=== PATIENT | female | born 1965 | race African-American/Black ===

== ENCOUNTER 2019-09-15 13:39 | Outpatient (CLI) | payer OTHER, SELFPAY ==
[2019-09-15 14:09] LABS: Basophils Percent Auto 0.5 % (0.2-1.2); Eosinophils Absolute Auto 0.1 K/mm3 (0-0.3); Eosinophils Percent Auto 1.1 % (0-4.4); Hemoglobin 12.2 g/dL (12.0-15.0); Immature Granulocyte Absolute 0.01 K/mm3 (0.00-0.031); Immature Granulocyte Percent A 0.2 % (0-0.5); Lymphocytes Percent Auto 36.5 % (18.3-44.2); Mean Corpuscular HGB Conc 32.1 g/dl (32-36); Mean Corpuscular Hemoglobin 28.2 pg (26-34); Mean Platelet Volume 11.5 fl (7.4-10.4); Monocytes Absolute Auto 0.6 K/mm3 (0.1-0.6); Monocytes Percent Auto 12.6 % (2.6-8.5); Neutrophils Absolute Auto 2.2 K/mm3 (1.3-6.7); Neutrophils Percent Auto 49.1 % (45.5-73.1); Platelet Count Result 237 k/mm3 (150-375); Red Blood Count 4.32 M/mm3 (4.2-5.4); Red Cell Distribution Width 13.7 % (11.5-14.5); White Blood Count 4.4 K/mm3 (4.5-10.0)
[2019-09-15 14:19] LABS: Alanine Aminotransferase 16 U/L (4-35); Albumin Level 4.2 g/dL (3.5-5.1); Alkaline Phosphatase 93 U/L (38-126); Aspartate Amino Transferase 35 U/L (14-36); Bilirubin,Total 0.4 mg/dL (0.2-1.3); Blood Urea Nitrogen 15 mg/dL (7-17); Calcium 9.3 mg/dL (8.4-10.2); Carbon Dioxide 29 mmol/L (22-30); Chloride 103 mmol/L (98-107); Estimated Glomerular Filt Rate > 60; Glucose 98 mg/dL (65-105); Potassium 3.3 mmol/L (3.4-5.0); Sodium 143 mmol/L (137-145)
[2019-09-15 14:21] LABS: Rheumatoid Factor < 8.6 IU/ML (<12)
[2019-09-15 14:41] LABS: Erythrocyte Sedimentation Rate 98 mm/hr (0-20)
[2019-09-19 11:52] LABS: Anti Cyclic Citrullinated Pept 21 Units (<20)
== END 2019-09-15 13:40 | disposition home or self-care (01) ==
PROVIDERS: PCP Family Medicine
DX: M32.9 Systemic lupus erythematosus, unspecified (principal)
CPT/HCPCS: 36415; 80053; 85025; 85652; 86200; 86430

== ENCOUNTER 2020-07-26 15:30 | Outpatient (RCR) | payer OTHER, SELFPAY ==
--- NOTE | 2020-07-17 13:36 | PTOPEVAL ---
INITIAL PHYSICAL THERAPY EVALUATION and PLAN OF CARE Thank you for referring Beatrice Bennett to [facility].? Beatrice is scheduled to be seen for physical therapy? 2x/week for 4 weeks. Please review, sign, date and return this plan of care MONICA. I agree with and certify that the following plan of care is medically necessary. Referring Physician Date Admitting Provider: Attending Provider: Radha Dunn Referring Provider: *PT Outpatient Evaluation Start: 07/17/20 12:41 Freq: Status: Active Protocol: Document 07/17/20 12:35 NEHEMIAH (Rec: 07/17/20 13:36 NEHEMIAH [id number]) Therapy Assessment Status Assessment Status Assessment Status Evaluation Outpatient Past Medical History Past Medical History Source of Past Medical History Patient Neurological History Hx Neurological Disorders No Significant History Cardiovascular History Hx Hypertension Yes Respiratory History Hx Respiratory Disorders No Significant History Gastrointestinal History Hx Gastroesophageal Reflux Disease Yes Genitourinary History Hx Genitourinary Disorders No Significant History Musculoskeletal History Hx Arthritis Yes: cervical spine 2018 Endocrine History Hx Systemic Lupus Erythematosus Yes Evaluation Information Problem Diagnosis Degenerative cervical spinal stenosis Onset ~ 2 years ago - recent return 3-4 months ago Subjective Information Pain/stiffness in neck - Query Text:As Reported By Patient/ traveled into [facility] Family and forward into clavicular region. Went to a spa - helped - heat, water bed with pulsating jets. Sleeping - stiffness in morning, sleeps on side - uses neck pillow. Walks in mornings - 1.5 miles - will loosen up after walk. As day go on - does okay unless she has episodes of prolonged sitting. Will do shoulder rolls, scapular retraction to help loosen neck up. 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 Home
--- NOTE | 2020-07-26 16:08 | PCPTNOTE ---
Patient did not show up for scheduled appointment this date; She answered the phone stating she's been in [facility] due to family member having heart issues and forgot about appointment. Unsure if she will be able to make Thursday's appointment will call to cancel iff need be.
--- NOTE | 2020-07-31 13:13 | PCPTNOTE ---
Patient did not show up for scheduled appointment this date. Phone call made - Beatrice appeared to know she missed today's appointment - something about her . Was aware of her 7:30 appt on 08/02/2020.
--- NOTE | 2020-08-02 09:40 | PCPTNOTE ---
Patient did not show up for scheduled appointment this date; noticed PT about patient third no show.
--- NOTE | 2020-08-06 16:12 | PCPTNOTE ---
PHYSICAL THERAPY DISCHARGE SUMMARY Admitting Provider: Attending Provider: Radha Dunn Patient:Beatrice Bennett Date of :1965 Beatrice has not returned for any further treatments since 07/17/2020, which was her initial appointment. She has cancelled 1 appointment and did not show x 3 appointments. I phone her today in regards to her appointment 08/07/2020. She stated that she is undergoing further testing and is wanting to cancel the remainder of her appointments. Therefore she will be discharged at this time. The goals have not been met. She only attended the initial appointment. Thank you for referring Beatrice to [facility]. Please review, sign, date and return this discharge summary MONICA. I have been updated about Beatrice's current status and I agree with discharge from the above service at this time. Referring Physician Date
== END 2020-10-01 12:16 | disposition home or self-care (01) ==
LOC: ANHPT 15:30
PROVIDERS: PCP Family Medicine
DX: M48.02 Spinal stenosis, cervical region (principal)
CPT/HCPCS: 97162

== ENCOUNTER 2020-08-06 16:31 | Emergency (ER) | payer OTHER, SELFPAY ==
[2020-08-06 16:41] VITALS: BP 137/86; PULSE 86; RESP 20; TEMP 37.3; O2SAT 100
== END 2020-08-06 16:46 | disposition left against medical advice (07) ==
LOC: EXPCOLL 16:36
PROVIDERS: Emergency Provider Nurse Practitioner
DX: Z53.21 Procedure and treatment not carried out due to patient leaving prior to being seen by health care provider (principal)
CPT/HCPCS: 99199

== ENCOUNTER 2021-01-30 08:00 | Outpatient (RCR) | payer OTHER, SELFPAY ==
--- NOTE | 2020-12-26 13:40 | PTOPEVAL ---
PHYSICAL THERAPY EVALUATION AND PLAN OF CARE 12-26-20 Thank you for referring Beatrice Bennett to [facility], for the diagnosis of cervical spinal stenosis. Beatrice is scheduled to be seen for therapy? 2 x/week for 4 weeks. Please review, sign, date and return this plan of care MONICA. I agree with and certify that the following plan of care is medically necessary. Referring Physician Date Attending Provider: Dr. Kavya Dunn PT Outpatient Evaluation Document 12/26/20 12:50 SHELIA (Rec: 12/26/20 13:40 SHELIA [id number]) Source of Past Medical History Recalled from Previous Visit, Confirmed with Patient/Family Neurological History Hx Neurological Disorders No Significant History Cardiovascular History Hx Hypertension Yes: meds Respiratory History Hx Respiratory Disorders No Significant History Gastrointestinal History Hx Gastroesophageal Reflux Disease Yes Genitourinary History Hx Genitourinary Disorders No Significant History Musculoskeletal History Hx Arthritis Yes: cervical - upper thoracic pain Endocrine History Hx Systemic Lupus Erythematosus Yes HEENT History Hx HEENT Disorders No Significant History Integumentary History Hx Skin Disorders No Significant History Other History Hx Other Medical Conditions Yes: had COVID vaccine Evaluation Information Problem Diagnosis cervical spinal stenosis, neck pain Onset November 2020 Subjective Information gradual increase in neck pain; Query Text:As Reported By Patient/ no recent trauma or injury; Family have been busier at work and doing more; 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
--- NOTE | 2020-12-31 09:38 | PCPTNOTE ---
Patient did not show for today's visit.Patient called and reminded of her next appointment.
--- NOTE | 2021-01-04 10:47 | PCPTNOTE ---
Pt. cancelled therapy this date due to lack of transportation.
--- NOTE | 2021-01-14 14:12 | PCPTNOTE ---
pt did not show for today's appt; called pt and she thought her appt was tomorrow; reminder her of her next appt time on 01-17-21; she stated she would be here for that appt;
--- NOTE | 2021-01-24 08:24 | PCPTNOTE ---
pt called and rescheduled today's reeval;
--- NOTE | 2021-01-30 08:45 | PTOPEVAL ---
PHYSICAL THERAPY DISCHARGE 01-30-21 Refer to the clinical summary below for her status today, compared to the initial evaluation. The goals were partially achieved. Discharge PT services. Thank you for referring Beatrice Bennett to [facility] Please review, sign, date and return this Discharge report MONICA. I agree with and certify that the following plan of care is medically necessary. Referring Physician Date Attending Provider: Dr. Kavya Dunn Document 01/30/21 08:05 SHELIA (Rec: 01/30/21 08:44 SHELIA [id number]) Assessment Status Discharge Subjective Information Beatrice reports: woke up with Query Text:As Reported By Patient/ a headache and not feeling Family well this AM, sore in back and neck; went to gym this AM- walked on treadmill and did some arm weights; dry needling helped; therapy has helped; Pain Assessment Timing of Pain Assessment Timing of Pain Assessment Assessment Pain Scale Pain Scale Used Numeric (1 - 10) Self Report Pain Assessment Bilateral Spine, Cervical Reported Pain Level 8 Radicular Pain Location hot pain, stiff, headache; woke up hurting all over back this morning Pain Frequency Chronic Other Pain Description neck and both shoulder blades Lowest Pain Intensity 1 Greatest Pain Intensity 8 Other Pain Aggravating Factors sleeping--usually sleep hrs/ night;(mattress is 6 months old) Pain Behaviors Anxious,Grimacing,Guarding Additional Pain Comments worse pain has been about 5, but this AM worse-woke up with headache Pain Score Pain Score 8: Self Report Additional Pain Score Comments Oswestry self assessment functional score of 28% limitation; reports working time 10 hours, before pain increases--notice worse at tne of the day: hours and with sleeping, awaken 0-2x/night due to pain; last night did not sleep with the neck pillow that usually use; sleep R/L side; have not been having any headaches, but do this AM--? ill or sinus issues discussed pain management techniques: heat, s
== END 2021-02-01 08:22 | disposition home or self-care (01) ==
LOC: ANHPT 08:00
DX: M48.02 Spinal stenosis, cervical region (principal)
CPT/HCPCS: 97014; 97110; 97140; 97161; G0283

== ENCOUNTER 2021-04-16 15:50 | Outpatient (CLI) | payer OTHER, SELFPAY ==
--- NOTE | ~2021-04-16 | MM_ITS ---
EXAMINATION: MM screening david BI w diego HISTORY: Screening mammogram TECHNIQUE: Craniocaudal and mediolateral oblique 3-D tomosynthesis images were obtained and synthetic 2-D images were generated. CAD analysis was submitted and interpreted. COMPARISON: 12/09/2018, 11/04/2017, 08/06/2016 bilateral digital screening mammogram examinations BREAST PARENCHYMAL COMPOSITION: There are scattered areas of fibroglandular density. FINDINGS: There is no evidence of suspicious mass, calcification, or architectural distortion to sugg est malignancy in either breast. There has been no suspicious interval change. IMPRESSION: 1. No mammographic evidence of malignancy. 2. Recommend routine screening mammography in one year. BI-RADS Category 1: Negative Reviewed, dictated and finalized at location A.
== END 2021-04-16 15:51 | disposition home or self-care (01) ==
LOC: ANHIMG 15:52
DX: Z12.31 Encounter for screening mammogram for malignant neoplasm of breast (principal)
CPT/HCPCS: 77063; 77067

== ENCOUNTER 2021-09-13 10:58 | Emergency (ER) | payer OTHER, SELFPAY ==
--- NOTE | ~2021-09-13 | CT_ITS ---
EXAMINATION: CTA chest PE protocol DATE: 09/13/2021 12:38 INDICATION: Midsternal chest pain. TECHNIQUE: Computed tomography angiography (CTA) of the chest was performed with 100 mL Omnipaque-350 intravenous contrast timed to evaluate the pulmonary arteries. Coronal maximum intensity projection 3D-reconstructions were created by the technologist. Automated exposure control and iterative reconst ruction technique were employed. The dose-length product was 256.44 mGy-cm. COMPARISON: Chest 2 views 09/13/2021 FINDINGS: There are peripheral airspace opacities and groundglass opacities and septal thickening inv olving all lobes, worst in the basilar lower lobes. There are peripheral cystic areas in the basilar lower lobes and right upper lobe, consistent with honeycombing. No bronchiectasis. No pleural effusio n. The heart size is normal. There are coronary artery calcifications. No pericardial effusion. There is a small sliding hiatal hernia. There is no pulmonary embolus. There is mild thoracic spondylosis. IMPRESSION: 1. No pulmonary embolus. 2. Diffuse lung disease, most likely chronic interstitial lung disease in a pattern of usual intersti tial pneumonia (UIP). Reviewed, dictated and finalized at location E. WALKER IMPRESSION: 1. No pulmonary embolus. 2. Diffuse lung disease, most likely chronic interstitial lung disease in a pat tern of usual interstitial pneumonia (UIP).
--- NOTE | ~2021-09-13 | XR_ITS ---
XR chest 2V DATE: 09/13/2021 11:25 INDICATION: Chest pain TECHNIQUE: PA and lateral views COMPARISON: 12/29/2013 PA and lateral chest FINDINGS: Normal heart size. Aortic arch calcification and mild aortic unfolding. No hilar or mediast inal enlargement. No pulmonary infiltrate or consolidation, pleural effusion or pulmonary vascular congestion or pneumo thorax. IMPRESSION: No active cardiopulmonary disease Aortic atherosclerosis Reviewed, dictated and finalized at location B. NCIAL SECRETARY
[2021-09-13 11:05] VITALS: BP 162/94; BP 168/87; PULSE 80; PULSE 84; RESP 18; RESP 20; TEMP 36.8; O2SAT 100
--- NOTE | 2021-09-13 11:10 | ECG_ITS ---
Measurements Intervals [place] Rate: 77 P: 58 NV: 177 QRS: 19 QRSD: 97 T: 29 QT: 370 QTc: 421 Interpretive Statements SINUS RHYTHM BASELINE ARTIFACT- I, II, III, AVR, AVL, AVF, V1-V6 NORMAL ECG Electronically Signed On 09-13-2021 12:10:52 [employer] ADVOCATE by Gabe Mak D.O.
--- NOTE | 2021-09-13 11:22 | ED.CHESTPAIN ---
HPI - Chest Pain General Chief Complaint: Chest Pain Stated Complaint: chest pain Time Seen by Provider: 09/13/21 11:04 Source: patient History of Present Illness HPI narrative: Patient presents with chest pain. Patient ports she has had chest pain since 430 this morning when she woke up. Her pain is a squeezing sensation that radiates to her back. There are no clear aggravating or alleviating symptoms. She was having to manage her symptoms at home went to work and was distracted however she can do note pain throughout the day so she came to the ER for further evaluation. Reports a history of lupus she denies any significant family history recent hospitalizations prior blood clots. She denies shortness of breath nausea diaphoresis. Related Data Allergies Allergy/AdvReac Type Severity Reaction Status Date / Time No Known Allergies Allergy Verified 09/13/21 11:09 Review of Systems Review of Systems: CONSTITUTIONAL: Denies fever, chills, or sweats. EYES: Denies visual changes, redness, or discharge. ENT: Denies rhinorrhea, congestion, sore throat, or otalgia. CARDIOVASCULAR: Denies palpitations, or edema. RESPIRATORY: Denies cough or dyspnea. GASTROINTESTINAL: Denies abdominal pain, nausea, vomiting, or diarrhea. GENITOURINARY: Denies dysuria or hematuria. SKIN: Denies rash or itching. MUSCULOSKELETAL: Denies back pain, joint pain, or myalgia. NEUROLOGIC: Denies headache, numbness, dizziness, or weakness. PSYCHIATRIC: Denies anxiety or depression. All systems reviewed & are unremarkable except as noted in HPI and below PMFSH Past Medical History Medical History (Updated 09/13/21 @ 13:22 by Harley Graves MD) Hypertension Lupus Exam Narrative: GENERAL: Well-appearing, well-nourished, and in no acute distress. HEAD: Normocephalic, atraumatic. EYES: PERRLA and EOMI. ENT: Nares clear, no rhinorrhea or epistaxis. Mucous membranes moist. NECK: Supple. No masses. No JVD CHEST: Clear to auscultation. No respiratory distress. No wheezes rales or rhonchi HEART: Regular rate and rhythm. No murmur heard. Normal peripheral pulses. ABDOMEN: Soft, nontender, nondistended, normal active bowel sounds. EXTREMITIES: Normal range of motion. No edema. SKIN: Warm, dry, no rash. NEURO: No focal deficits. Alert and oriented x3. PSYCH: Normal mood and affect. Course Reevaluation(s) Reevaluation #1: Patient reports feeling improved results reviewed with patient. Patient is comfortable outpatient plan. Date: 09/13/21 Time: 13:17 Vital Signs Vital signs: Vital Signs Temperature 36.8 C 09/13/21 11:05 Pulse Rate 80 09/13/21 11:05 Respiratory Rate 18 09/13/21 11:05 Blood Pressure 162/94 H 09/13/21 11:05 Pulse Oximetry 100 09/13/21 11:05 Temperature 36.8 C 09/13/21 11:05 Pulse Rate 76 09/13/21 13:36 Respiratory Rate 19 09/13/21 13:36 Blood Pressure 165/76 H 09/13/21 13:36 Pulse Oximetry 99 09/13/21 13:36 MDM - Chest Pain MDM Narrative Medical decision making narrative: H&P as above, vs with hypertension, pt looks clinically well, exam reassuring, labs with elevated dimer CTPA ordered patient also had negative troponin with greater than 6 hours of symptoms, img without PE but did show interstitial lung disease may be related to patient's lupus, additional labs/img considered, symptomatic relief available as needed, on reevaluation pt continues to looks clinically well. Symptoms remain of unclear etiology low concern for PE, dissection, ACS, pneumonia.plan to tx/monitor as op w/ pcm f/u findings/plan discussed with pt, pt agree/comfortable with plan, return precautions given. Patient made aware of healthy findings instructed to follow-up with pulmonology. Patient prefers to touch base with her greenkeeper first. Lab Data Result diagrams: 09/13/21 11:21 09/13/21 11:21 Labs: Lab Results 09/13/21 09/13/21 09/13/21 Range/Units 11:21 11:21 11:21 WBC 5.1 (4
[2021-09-13 11:30] LABS: Basophils Percent Auto 0.4 % (0.2-1.2); Eosinophils Absolute Auto 0.1 K/mm3 (0-0.3); Eosinophils Percent Auto 1.4 % (0-4.4); Hematocrit 38.9 % (37.0-47.0); Hemoglobin 12.6 g/dL (12.0-15.0); Immature Granulocyte Absolute 0.01 K/mm3 (0.00-0.031); Immature Granulocyte Percent A 0.2 % (0-0.5); Lymphocytes Absolute Auto 1.96 K/mm3 (0.9-3.2); Lymphocytes Percent Auto 38.3 % (18.3-44.2); Mean Corpuscular HGB Conc 32.4 g/dl (32-36); Mean Corpuscular Hemoglobin 29.1 pg (26-34); Mean Corpuscular Volume 89.8 fl (80-100); Mean Platelet Volume 11.1 fl (7.4-10.4); Monocytes Absolute Auto 0.7 K/mm3 (0.1-0.6); Monocytes Percent Auto 14.3 % (2.6-8.5); Neutrophils Absolute Auto 2.3 K/mm3 (1.3-6.7); Neutrophils Percent Auto 45.4 % (45.5-73.1); Platelet Count Result 231 k/mm3 (150-375); Red Blood Count 4.33 M/mm3 (4.2-5.4); Red Cell Distribution Width 14.3 % (11.5-14.5); White Blood Count 5.1 K/mm3 (4.5-10.0)
[2021-09-13 11:41] LABS: Alanine Aminotransferase 21 U/L (4-35); Albumin Level 4.4 g/dL (3.5-5.1); Alkaline Phosphatase 86 U/L (38-126); Anion Gap 6 mmol/L (8-16); Aspartate Amino Transferase 39 U/L (14-36); Bilirubin,Total 0.5 mg/dL (0.2-1.3); Blood Urea Nitrogen 15 mg/dL (7-17); Calcium 9.1 mg/dL (8.4-10.2); Carbon Dioxide 28 mmol/L (22-30); Chloride 107 mmol/L (98-107); Estimated CRCL calculation 123 ml/min; Estimated Glomerular Filt Rate > 60; Glucose 116 mg/dL (65-110); Lipase 93 U/L (23-300); Potassium 3.3 mmol/L (3.4-5.0); Sodium 141 mmol/L (137-145)
[2021-09-13 11:45] LABS: INR 1.1; Partial Thromboplastin Time 31.3 SECONDS (22.3-36.8); Prothrombin Time 14.2 Seconds (11.1-14.7)
[2021-09-13 11:53] LABS: Troponin I < 0.012 ng/mL (0.000-0.034)
[2021-09-13 12:16] VITALS: BP 173/98; PULSE 65; RESP 20; O2SAT 100
[2021-09-13 12:31] VITALS: BP 148/104; PULSE 77; RESP 18; O2SAT 100
[2021-09-13] MEDS: ACETAMINOPHEN 500 MG TABLET 1000 MG PO (13:09)
[2021-09-13 13:36] VITALS: BP 165/76; PULSE 76; RESP 19; O2SAT 99
== END 2021-09-13 13:40 | disposition home or self-care (01) ==
PROVIDERS: Emergency Provider Emergency Medicine; PCP Internal Medicine
DX: R07.89 Other chest pain (principal); I10 Essential (primary) hypertension; I70.0 Atherosclerosis of aorta; J98.4 Other disorders of lung
CPT/HCPCS: 36415; 71046; 71275; 80053; 83690; 84484; 85025; 85380; 85610; 85730; 93005; 99284; A9270; Q9967

== ENCOUNTER 2021-10-31 07:30 | Outpatient (RCR) | payer OTHER, SELFPAY ==
--- NOTE | 2021-10-08 09:30 | PTOPEVAL ---
PHYSICAL THERAPY INITITAL EVALUATION. Thank you for referring Beatrice Bennett to [facility].? The patient is scheduled to be seen for therapy? 2x/week for 4 weeks. Please review, sign, date and return this plan of care MONICA. I agree with and certify that the following plan of care is medically necessary. Referring Physician Date Attending Provider: PHYSICIAN NOT ON STAFF *PT Outpatient Evaluation Start: 10/08/21 Evaluation Information Diagnosis R hip bursitis, cervical spondylosis Onset chronic Subjective Information Beatrice states she has a Query Text:As Reported By Patient/ history of hip and neck pain. Family She has been treated her multiple times for her neck pain. She states she does her previously given neck exercises when she can remember. She states for last month or so both of her hips have a new pulling sensation and are really tender to the touch. She states no known mechanism of injury. Pt states she has increased pain when she is stationary for too long . She reports she walks on the treadmill daily and exercises at the gym ~4 times a week. Pt reports a history of lupus and chronic joint pain associated with this. Previous Treatments For This Problem Previous physial therapy for neck pain Additional Prior Level of Function Pt states she huffs and puffs Comments to get up the stairs. Pain Assessment Bilateral Hip(s) Reported Pain Level 7 Pain Description Sharp,Tender on Palpation Lowest Pain Intensity 7 Greatest Pain Intensity 9 Pain Aggravating Factors Sitting,Supine Lower Neck Reported Pain Level 7 Pain Description Burning,Sharp Pain Frequency Chronic Lowest Pain Intensity 4 Greatest Pain Intensity 12 Pain Aggravating Factors Supine Cervical ROM Cervical Flexion (0-60) 30 Query Text:Active in Degrees Cervical Extension (0-70) 10 Query Text:Active in Degrees Cervical Lateral Flexion Right (0-50) 20 Query Text:Active in Degrees Cervical Lateral Flexion Right (0-50) 45 Query Text:Passive in Degrees Cervical Lateral Flexion Left (0-50) 18
--- NOTE | 2021-10-29 07:23 | PCPTNOTE ---
Patient called & cancelled scheduled appointment this date due to not feeling well.
--- NOTE | 2021-11-05 10:34 | PCPTNOTE ---
Patient called & cancelled scheduled re-evaluation this date due to a in the family. She has been rescheduled.
--- NOTE | 2021-11-15 08:39 | PCPTNOTE ---
Attending Provider: PHYSICIAN NOT ON STAFF Patient:Beatrice Bennett Date of :1965 Patient did not show for her re-evaluation this date after calling and cancelling her previous re-evaluation scheduled for 11/05/21. Patient was called today to follow up, she states she is too busy to complete therapy and would like to be discharged at this time. Patient?s initial visit was on 10/08/2021 08:00 and she had a total of 6 visits. Thank you for referring this patient to [facility]. Please review, sign, date and return this discharge summary MONICA. I have been updated about the patient's current status and I agree with discharge from the above service at this time. Referring Physician Date
== END 2021-11-22 13:01 | disposition home or self-care (01) ==
LOC: ANHPT 07:30
DX: M70.61 Trochanteric bursitis, right hip (principal); M47.812 Spondylosis without myelopathy or radiculopathy, cervical region
CPT/HCPCS: 97110; 97112; 97140; 97161

== ENCOUNTER 2023-06-16 04:28 | Emergency (ER) | payer BC, SELFPAY ==
--- NOTE | ~2023-06-16 | CT_ITS ---
Clinical Indication: Chest pain CT Scan of the Chest with Contrast: Technique: Contiguous sections were acquired throughout the chest after intravenous administration of 100 cc of Omnipaque 350. Dose reduction technique was used on this scan by utilizing automated expos ure control and iterative reconstruction technique. The dose-length product (DLP) was 318.67 mGy-cm. COMPARISON: 09/13/2021 Findings: There is no evidence of any significant mediastinal, hilar or axillary lymphadenopathy. There is no f illing defect in the pulmonary arterial tree to suggest pulmonary embolus. There is no evidence of ao rtic dissection or aneurysm. There is no evidence of pleural or pericardial effusion. There is bibasilar chronic honeycombing with interstitial thickening and mild diffuse subpleural reti culation. There is more mild interstitial thickening in the upper lobes. There is biapical scarring. Images through the upper abdomen reveal no abnormalities. Impression: No evidence of pulmonary embolus, aortic dissection, or aortic aneurysm. Stable bibasilar predominant chronic interstitial disease. Reviewed, dictated and finalized at [facility]. OR DATABASE ADMINISTRATOR Impression: No evidence of pulmonary embolus, aortic dissection, or aortic aneurysm. Stable bibasilar predominant chronic interstitial disease.
--- NOTE | ~2023-06-16 | XR_ITS ---
Portable chest x-ray Comparison: 09/13/2021 Clinical History: Dyspnea Findings: Questionable minimal interstitial pulmonary edema. No focal consolidation or pleural effus ion. Cardiomediastinal silhouette is stable. Bones and soft tissues are unremarkable. Impression: Questionable minimal interstitial edema. Reviewed, dictated and finalized at [facility]. PROFESSOR Impression: Questionable minimal interstitial edema.
[2023-06-16 04:32] VITALS: BP 157/90; PULSE 72; RESP 14; TEMP 36.4; O2SAT 97
--- NOTE | 2023-06-16 04:40 | ECG_ITS ---
Measurements Intervals [place] Rate: 74 P: 49 NM: 160 QRS: 7 QRSD: 93 T: 14 QT: 363 QTc: 405 Interpretive Statements SINUS RHYTHM CONSIDER INFERIOR INFARCT, AGE INDETERMINATE BASELINE WANDER- III, AVF ABNORMAL ECG NO PREVIOUS ECG AVAILABLE FOR COMPARISON Electronically Signed On 06-16-2023 6:40:22 PITCH WORKER by Gabe Mak D.O.
--- NOTE | 2023-06-16 04:59 | ED.GENADULT ---
HPI - General Adult General Chief complaint: Back Pain/Injury <Shekhar Aburto MD - Last Filed: 06/16/23 06:51> Stated complaint: back pain/ difficulty breathing <Shekhar Aburto MD - Last Filed: 06/16/23 06:51> Time Seen by Provider: 06/16/23 04:36 <Shekhar Aburto MD - Last Filed: 06/16/23 06:51> History of Present Illness HPI narrative: This is a 57-year-old female with a history of lupus presenting to the ED with left-sided back pain. Patient has pain over her left scapula, that is sharp, worse with deep breaths, wraps around to the front and is associated with a cough. Patient denies fever chills abdominal pain or flu-like symptoms. She notes that she has had some bilateral swelling of her legs although it is worse at the end of the day and resolves overnight. <Shekhar Aburto MD - Last Filed: 06/16/23 06:51> Related Data Allergies/adverse reactions: Allergies Allergy/AdvReac Type Severity Reaction Status Date / Time No Known Allergies Allergy Verified 06/16/23 04:34 <Shekhar Aburto MD - Last Filed: 06/16/23 06:51> [facility] Past Medical History Medical History: Medical History Hypertension Lupus <Shekhar Aburto MD - Last Filed: 06/16/23 06:51> Social History Social History: Social History Gender identity (if verbalized by the patient): Female <Shekhar Aburto MD - Last Filed: 06/16/23 06:51> Exam Narrative: APPEARANCE: No apparent distress. Head: atraumatic. EYES: EOMI, NOSE: Atraumatic NECK: Trachea midline RESPIRATORY: No increased rate of breathing, Speaking in full sentences, pleuritic friction rub in the lungs basesbilaterally CARDIOVASCULAR: RRR, +1 pitting edema over the shins ABDOMINAL: Non-distended MUSCULOSKELETAl: No obvious deformities NEURO: Alert. Moving 4/4 extremities SKIN:: Warm, dry. Normal color PSYCHIATRIC: Normal affect <Shekhar Aburto MD - Last Filed: 06/16/23 06:51> Course Course Emergency Course: [place] 699: Signed out to the oncoming physician pending 2nd troponin. <Shekhar Aburto MD - Last Filed: 06/16/23 06:51> Vital Signs Vital signs: Vital Signs Temperature 97.6 F 06/16/23 04:32 Pulse Rate 72 06/16/23 04:32 Respiratory Rate 14 06/16/23 04:32 Blood Pressure 157/90 H 06/16/23 04:32 Pulse Oximetry 97 06/16/23 04:32 Oxygen Delivery Room Air 06/16/23 04:32 Temperature 97.6 F 06/16/23 04:32 Pulse Rate 72 06/16/23 04:32 Respiratory Rate 14 06/16/23 04:32 Blood Pressure 157/90 H 06/16/23 04:32 Pulse Oximetry 97 06/16/23 04:32 Oxygen Delivery Room Air 06/16/23 04:32 <Shekhar Aburto MD - Last Filed: 06/16/23 06:51> Vital Signs Temperature 97.6 F 06/16/23 04:32 Pulse Rate 72 06/16/23 04:32 Respiratory Rate 14 06/16/23 04:32 Blood Pressure 157/90 H 06/16/23 04:32 Pulse Oximetry 97 06/16/23 04:32 Oxygen Delivery Room Air 06/16/23 04:32 Temperature 97.6 F 06/16/23 04:32 Pulse Rate 72 06/16/23 04:32 Respiratory Rate 14 06/16/23 04:32 Blood Pressure 157/90 H 06/16/23 04:32 Pulse Oximetry 97 06/16/23 04:32 Oxygen Delivery Room Air 06/16/23 04:32 <Efe Arora III, DO - Last Filed: 06/16/23 08:36> Medical Decision Making MDM Narrative Medical decision making narrative: -Course: 57-year-old female presenting with pleuritic back pain. CT PE was negative for PE but did show chronic interstitial lung disease, likely from her lupus. Laboratory studies were all within normal limits including an undetectable troponin. EKG unremarkable. Patient's condition improved after Toradol and Tylenol. She was given a muscle relaxer and lidocaine patch. Patient has been signed out to the oncoming physician pending 2nd troponin but expect discharge when it returns. -DDX includes but is not limited to:
[2023-06-16] MEDS: KETOROLAC 15 MG/ML VIAL (*BKC) IV PUSH (05:18)
[2023-06-16] MEDS: ACETAMINOPHEN 500 MG TABLET 1000 MG PO (05:19)
[2023-06-16 05:33] LABS: Basophils Percent Auto 0.6 % (0.2-1.2); Eosinophils Absolute Auto 0.1 K/mm3 (0-0.3); Eosinophils Percent Auto 1.9 % (0-4.4); Hematocrit 37.1 % (37.0-47.0); Immature Granulocyte Absolute 0.03 K/mm3 (0.00-0.031); Immature Granulocyte Percent A 0.6 % (0-0.5); Lymphocytes Absolute Auto 1.95 K/mm3 (0.9-3.2); Lymphocytes Percent Auto 40.4 % (18.3-44.2); Mean Corpuscular HGB Conc 32.3 g/dl (32-36); Mean Corpuscular Hemoglobin 28.9 pg (26-34); Mean Corpuscular Volume 89.4 fl (80-100); Mean Platelet Volume 11.4 fl (7.4-10.4); Monocytes Absolute Auto 0.6 K/mm3 (0.1-0.6); Neutrophils Absolute Auto 2.1 K/mm3 (1.3-6.7); Neutrophils Percent Auto 43.5 % (45.5-73.1); Platelet Count Result 267 k/mm3 (150-375); Red Blood Count 4.15 M/mm3 (4.2-5.4); Red Cell Distribution Width 14.4 % (11.5-14.5); White Blood Count 4.8 K/mm3 (4.5-10.0)
[2023-06-16 05:43] LABS: Alanine Aminotransferase 17 U/L (6-35); Alkaline Phosphatase 79 U/L (38-126); Anion Gap 7 mmol/L (8-16); Aspartate Amino Transferase 36 U/L (14-36); Bilirubin,Total 0.7 mg/dL (0.2-1.3); Blood Urea Nitrogen 14 mg/dL (7-17); Calcium 9.1 mg/dL (8.4-10.2); Carbon Dioxide 25 mmol/L (22-30); Chloride 108 mmol/L (98-107); Estimated CRCL calculation 118 ml/min; Estimated Glomerular Filt Rate > 60; Glucose 111 mg/dL (65-110); Potassium 3.2 mmol/L (3.4-5.0); Sodium 140 mmol/L (137-145)
[2023-06-16 05:44] LABS: INR 1.1; Partial Thromboplastin Time 32.6 SECONDS (22.3-36.8); Prothrombin Time 15.1 Seconds (11.1-14.7)
[2023-06-16 05:52] LABS: NT Pro B Type Natriuretic Pept 190 pg/mL (19.9-100)
[2023-06-16 05:54] LABS: Troponin I < 0.012 ng/mL (0.000-0.034)
[2023-06-16 06:02] LABS: Burr Cells 1+ (NORMAL); Platelet Estimate Adequate (Adequate); Schistocytes None Seen (NORMAL)
[2023-06-16] MEDS: LIDOCAINE 5% PATCH 1 PATCH TRANSDERM (06:54)
[2023-06-16 07:00] VITALS: BP 134/89; PULSE 68; RESP 16; O2SAT 100
[2023-06-16 08:00] VITALS: BP 145/83; PULSE 64; RESP 16; TEMP 36.8; O2SAT 98
[2023-06-16 08:28] LABS: Troponin I 0.018 ng/mL (0.000-0.034)
== END 2023-06-16 08:51 | disposition home or self-care (01) ==
PROVIDERS: Emergency Medicine; Emergency Provider Emergency Medicine
DX: R09.1 Pleurisy (principal); I10 Essential (primary) hypertension
CPT/HCPCS: 36415; 71045; 71275; 80053; 83735; 83880; 84484; 85025; 85610; 85730; 93005; 96374; 99284; A9270; J1885; J3360; Q9967

== ENCOUNTER 2024-02-27 07:04 | Outpatient (CLI) | payer BC, SELFPAY ==
[2024-02-27 08:24] LABS: Alanine Aminotransferase 17 U/L (6-35); Alkaline Phosphatase 80 U/L (38-126); Anion Gap 9 mmol/L (4-12); Aspartate Amino Transferase 33 U/L (14-36); Bilirubin,Total 0.4 mg/dL (0.2-1.3); Blood Urea Nitrogen 18 mg/dL (7-17); Calcium 8.7 mg/dL (8.4-10.2); Carbon Dioxide 26 mmol/L (22-30); Chloride 107 mmol/L (98-107); Cholesterol 119 mg/dL (0-200); Estimated Glomerular Filt Rate > 60; Glucose 98 mg/dL (65-110); HDL Direct 33 mg/dL; Magnesium 2.1 mg/dL (1.6-2.3); Potassium 3.7 mmol/L (3.4-5.0); Sodium 142 mmol/L (137-145); Triglycerides 58 mg/dL (<150)
[2024-02-27 08:35] LABS: LDL Cholesterol Direct 74 mg/dL
== END 2024-02-27 07:05 | disposition home or self-care (01) ==
DX: I48.0 Paroxysmal atrial fibrillation (principal); I25.10 Atherosclerotic heart disease of native coronary artery without angina pectoris; I10 Essential (primary) hypertension
CPT/HCPCS: 36415; 80053; 80061; 83735

== ENCOUNTER 2024-06-23 16:18 | Emergency (ER) | payer OTHER, BC, SELFPAY ==
--- NOTE | ~2024-06-23 | XR_ITS ---
HISTORY: left buttock pain, left SI pain COMPARISON: None TECHNIQUE: 2 views of the left hip along with an AP view of the pelvis FINDINGS: No acute fracture or dislocation is identified. Superior lateral sclerosis of the femoral acetabular joint space is present consistent with osteoarth ritis. Joint space narrowing detected within the left SI joint with sclerosis. Degenerative disease within the lower lumbar spine. Fecal stasis within the colon. Air within the rectum. Normal mineralization. IMPRESSION: Degenerative disease without acute fracture or dislocation Reviewed, dictated and finalized at location A. NING STRATEGIST
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
[2024-06-23 16:57] VITALS: BP 136/78; PULSE 72; RESP 18; TEMP 36.2; O2SAT 100
== END 2024-06-23 18:28 | disposition home or self-care (01) ==
PROVIDERS: Emergency Provider Physician Assistant
DX: S70.02XA Contusion of left hip, initial encounter (principal); W51.XXXA Accidental striking against or bumped into by another person, initial encounter; I10 Essential (primary) hypertension; M32.9 Systemic lupus erythematosus, unspecified
CPT/HCPCS: 73502; 99283

== ENCOUNTER 2024-09-26 08:00 | Outpatient (RCR) | payer BC, SELFPAY ==
--- NOTE | 2024-07-04 10:05 | OPREHPOC ---
Outpatient Therapy Plan of Care This is a Multidisciplinary Plan of Care that may contain components documented by all disciplines (PT, OT, and ST.) PT Problem 1 PT Problem #1 Knowledge Deficit PT Goal 1 Goal / Goal Update *indep with HEP * use correct body mechanics with lifting from floor Target Visit 8 PT Problem 2 PT Problem #2 Pain PT Goal 1 Goal / Goal Update 1* Pain rating at worst for back and hips of 7/10 2* pt report with sleeping, awaken 2x/night due to pain Target Visit 8 PT Problem 3 PT Problem #3 Impaired Strength PT Goal 1 Goal / Goal Update increase strength of trunk and hips, to improve posture and stability to spine 1* pt perform 20 reps of mat strengthening exercises Target Visit 8 PT Problem 4 PT Problem #4 Impaired Flexibility PT Goal 1 Goal / Goal Update increase flexibility of hips, to decrease pull and strain to lumbar-sacral spine hamstring length with supine SLR to 60' 1* R 2* L anterior hip/quad length with prone knee flexion 120' 3* R 4* L Target Visit 8
--- NOTE | 2024-07-04 10:06 | PTOPEVAL1 ---
Assessment and note entered by Manisha Roy, PT Evaluation Information Assessment Status Evaluation ICD-10 Condition Codes (PT) Cervicalgia M54.2,Pain in right hip M25.551,Pain in left hip M25.552 Other ICD-10 Condition Codes ( M70.61, M70.62 trochanteric bursitis R and L PT) Onset January 2024 Subjective Information more problems with rolling in bed, sitting. 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 She wants to start treatment for her hips first. Her activity level, sitting and sleeping tolerances are decreased due to pain- -in hips and back. Oswestry self rating of 48% limitation in activity. With the evaluation: she has poor position of her trunk and hips in standing; pain is increased with standing trunk extension more than flexion pain; decreased hamstring length with pain bilateral; tightness over anterior hip/quads; weakness over trunk and hips. Skilled PT services are indicated for modalities for pain control, therapeutic exercises to increase strength and flexibility with education for HEP, posture/positioning and pain management. Plan of Care Interventions Electrical Stimulation,Hot Pack/Cold Pack,Manual Therapy,Neuro Re-education,Patient Education,Therapeutic Activities,Therapeutic Exercise,Ultrasound,Other Other Interventions taping PT Services Indicated Yes Treatment Frequency and 1-2x/wk for 8 visits Duration These treatments will address the objective and functional deficits as defined above. The patient will be advanced safely and appropriately in order for the patient to progress towards his/her prior level of function. Additional exercises will be introduced and as well as a comprehensive home exercise program upon discharge, if needed, ?to ensure carryover of functional gains achieved in the clinic. This treatment plan has been reviewed and agreement upon by the patient.
--- NOTE | 2024-07-18 16:25 | PCPTNOTE ---
Attempted PT this afternoon however pt was headed to the commode then bath. PT will cont to follow. AKS
--- NOTE | 2024-08-16 16:43 | PCPTNOTE ---
Note addendum for 08/08/24 visit: S: Pt reports being more sore this date and feels it is weather related. She feels therapy helps but it is usually short term. O: -wall stand isometric trunk, 5 sec hold x 10 reps -LTR x 10 to ea side for 5 sec holds -SLR x 10 ea leg -side lying hip abduction x 10 ea leg -prone hip extension x 10 ea leg -supine modified hip flexor stretch with leg off EOB 3 x 30 sec ea leg -seated hamstring stretch 3 x 30 sec ea leg -Bent knee fall out x 3 , 1- sec hold -bridges x 10 Manual therapy to lumbar paraspinals, glute med, significant tenderness to R pirifromis, bilateral piriformis (STM), para spinal stretching A: Pt tolerated session well with decreased tightness and improved mobility with bed mobility and gait. Pt presented with significant tenderness on L side at piriformis and trigger point medial spine on L. P: Cont to decrease pain and improve mobility and tissue extensibility. CHARGES: PT exercise: 1 unit 15min PT Manual: 2 units 25 min TOTAL: 40 MIN
--- NOTE | 2024-08-22 09:53 | PTOPEVAL1 ---
Assessment and note entered by Manisha Roy PT Evaluation of cervical pain/ Discharge of back treatment Assessment Status Evaluation ICD-10 Condition Codes (PT) Cervicalgia M54.2,Pain in low back M54.50 Other ICD-10 Condition Codes ( M70.61, M70.62 trochanteric bursitis R and L PT) Onset January 2024 Subjective Information low back is better, but still have pain in the hips; the exercises help her; want to finish back care NECK: onset about 1year ago; continues to have neck pain, recently more, no injury or trauma to neck; have headaches also had PT here in the past--traction, massage to neck BACK PAIN: now: low back pain 2/10 and hips 5/10; pain range in the past week 2-5/10; with sleeping, awaken 3x/night with pain with rolling onto her sides and change of position. decrease pain: stretching, change positions increase pain: lying on her side; sitting 1-2 hours; NECK PAIN: pain range in the past week: 7-10/10; pressure, knots in neck, L > R, stiff have headaches 2-3 x/wk usually in evening, take meds and go to bed increase pain: rotation of neck decrease pain: rest, heat, tylenol usually sleep on her sides; have a pillow with head cut out and elevated edges; awaken 1x/night due to neck pain Reported Pain Level Pain Score 5,7: Self Report Additional Pain Score Comments BACK: now: low back pain 2/10 and hips 5/10; pain range in the past week 2-5/10; with sleeping, awaken 3x/night with pain with rolling onto her sides and change of position. decrease pain: stretching, change positions increase pain: lying on her side; sitting 1-2 hours; NECK: pain range in the past week: 7-10/10; pressure, knots in neck, L > R, stiff have headaches 2-3 x/wk usually in evening, take meds and go to bed increase pain: rotation of neck decrease pain: rest, heat, tylenol usually sleep on her sides; have a pillow with head cut out and elevated edges; awaken 1x/night due to neck pain Assessment PT Clinical Summary Beatrice has received 8 PT sessions for back pain: she has improved in all areas: pain rating from 3-10/10 to 2-5/10; self assessment from 48 to 26% limitation in activity level; reported sleeping tolerance from awakening 3-4x to 3x/ night due to back pain; increase flexibility of R and L hamstrings and anterior hip/quad muscles; increase strength of trunk and hips. Education completed for HEP and posture, with frequent position changes, with working at computer, get up and move every 45 minutes. The goals were achieved except sleeping tolerance. EVALUATION for neck pain: chronic pain in her neck with headaches 2-3 x/week, onset at end of day; Neck Disability Index rating of 42% limitation in activity level; decreased cervical rotation to R and L with R painful; muscle spasms over R and L cervical and upper traps areas; posture with forward head and rounded shoulders. PLAN: stop treatment for her back and begin treatment for neck pain. Skilled PT services are indicated for modalities to decrease pain and spasms, therapeutic exercises to increase flexibility of neck and education for HEP and posture. Plan of Care Interventions Electrical Stimulation,Hot Pack/Cold Pack,Manual Therapy,Mechanical Traction,Neuro Re-education, Patient/Caregiver Education,Therapeutic Activities ,Therapeutic Exercise,Ultrasound,Other Other Interventions taping PT Services Indicated Yes Treatment Frequency and 1x/wk for 8 visits Duration These treatments will address the objective and functional deficits as defined above. The patient will be advanced safely and appropriately in order for the patient to progress towards his/her prior level of function. Additional exercises will be introduced and as well as a comprehensive home exercise program upon discharge, if needed, ?to ensure carryover of functional gains achieved in the clinic. This treatment plan has been reviewed and agreement upon by the patient.
--- NOTE | 2024-08-22 09:54 | OPREHPOC ---
Outpatient Therapy Plan of Care This is a Multidisciplinary Plan of Care that may contain components documented by all disciplines (PT, OT, and ST.) PT Problem 1 PT Problem #1 Knowledge Deficit PT Goal 1 Goal / Goal Update *indep with HEP * use correct body mechanics with lifting from floor 08-22-24: d/c back/ EVAL for neck: goals met NECK goals: * education for HEP for neck Target Visit 16 PT Problem 2 PT Problem #2 Pain PT Goal 1 Goal / Goal Update 1* Pain rating at worst for back and hips of 7/10 2* pt report with sleeping, awaken 2x/night due to pain 08-22-24: d/c back/ EVAL for neck: goal 1 met; improved with #2 to 3x/night NECK goals: 1* pain rating at worst of 6/10 2* pt report headache occur 1x/wk Target Visit 16 PT Problem 3 PT Problem #3 Impaired Strength PT Goal 1 Goal / Goal Update increase strength of trunk and hips, to improve posture and stability to spine 1* pt perform 20 reps of mat strengthening exercises 08-22-24: d/c back/ EVAL for neck: goal met NECK goals: * pt perform 20 reps of cervical-thoracic- scapular strengthening, to improve posture and position of neck and shoulders Target Visit 16 PT Problem 4 PT Problem #4 Impaired Flexibility PT Goal 1 Goal / Goal Update increase flexibility of hips, to decrease pull and strain to lumbar-sacral spine hamstring length with supine SLR to 60' 1* R 2* L anterior hip/quad length with prone knee flexion 120' 3* R 4* L 08-22-24: d/c back/ EVAL for neck: goals met NECK goals: improve active cervical rotation to improve driving and home tasks *1 rotation to R 55' *2 rotation to L 55' Target Visit 16
--- NOTE | 2024-09-28 08:57 | PCPTNOTE ---
This treatment is being continued on visit number [id number] Please see documentation on both accounts to view progress. Completed interventions, outcomes, and problems have been marked as Inactive to facilitate the copying of the Care plan routine for recurring accounts.
== END 2024-09-28 08:03 | disposition home or self-care (01) ==
LOC: ANHPT 08:00
DX: M70.61 Trochanteric bursitis, right hip (principal); M70.62 Trochanteric bursitis, left hip; M54.2 Cervicalgia
CPT/HCPCS: 97012; 97014; 97110; 97140; 97161; 97530; G0283

== ENCOUNTER 2024-10-31 09:00 | Outpatient (RCR) | payer BC, SELFPAY ==
--- NOTE | 2024-09-28 08:59 | PCPTNOTE ---
This treatment is being continued from visit number [id number] Please see documentation on both accounts to view progress. Completed interventions, outcomes, and problems have been marked as Inactive to facilitate the copying of the Care plan routine for recurring accounts.
--- NOTE | 2024-10-17 08:16 | PCPTNOTE ---
pt called at 8:00 to cancel today's reevaluation, due to another appt ; rescheduled the reevaluation
--- NOTE | 2024-10-31 10:01 | OPREHPOC ---
Outpatient Therapy Plan of Care This is a Multidisciplinary Plan of Care that may contain components documented by all disciplines (PT, OT, and ST.) PT Problem 1 PT Problem #1 Knowledge Deficit PT Goal 1 Goal / Goal Update *indep with HEP * use correct body mechanics with lifting from floor 08-22-24: d/c back/ EVAL for neck: goals met NECK goals: * education for HEP for neck Target Visit 16 Progress Met PT Problem 2 PT Problem #2 Pain PT Goal 1 Goal / Goal Update 1* Pain rating at worst for back and hips of 7/10 2* pt report with sleeping, awaken 2x/night due to pain 08-22-24: d/c back/ EVAL for neck: goal 1 met; improved with #2 to 3x/night NECK goals: 1* pain rating at worst of 6/10 2* pt report headache occur 1x/wk Target Visit 16 Progress Met PT Problem 3 PT Problem #3 Impaired Strength PT Goal 1 Goal / Goal Update increase strength of trunk and hips, to improve posture and stability to spine 1* pt perform 20 reps of mat strengthening exercises 08-22-24: d/c back/ EVAL for neck: goal met NECK goals: * pt perform 20 reps of cervical-thoracic- scapular strengthening, to improve posture and position of neck and shoulders Target Visit 16 Progress Met PT Problem 4 PT Problem #4 Impaired Flexibility PT Goal 1 Goal / Goal Update increase flexibility of hips, to decrease pull and strain to lumbar-sacral spine hamstring length with supine SLR to 60' 1* R 2* L anterior hip/quad length with prone knee flexion 120' 3* R 4* L 08-22-24: d/c back/ EVAL for neck: goals met NECK goals: improve active cervical rotation to improve driving and home tasks *1 rotation to R 55' *2 rotation to L 55' Target Visit 16 Progress Met
--- NOTE | 2024-10-31 10:01 | PTOPDC ---
Assessment and note entered by Art Luu, PT Evaluation Information Assessment Status Discharge ICD-10 Condition Codes (PT) Cervicalgia M54.2,Pain in low back M54.50 Other ICD-10 Condition Codes ( M70.61, M70.62 trochanteric bursitis R and L PT) Onset January 2024 Subjective Information Reports that overall she is still having pain at night when she sleeps. Continues to have some discomfort in the neck but has been doing some exercises to help. Denies radicular symptoms. 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 Gets tension with this nature of work. Feels tension is a large part of her issues. Reported Pain Level Pain Score 4,0: Self Report Assessment PT Clinical Summary Patient met all personal goals for therapy and is suitable for discharge to [facility] at this time. She has understanding of symptom causation and exercise program to address. Plan of Care PT Services Indicated Yes
== END 2024-10-31 14:06 | disposition home or self-care (01) ==
LOC: ANHPT 09:00
DX: M70.61 Trochanteric bursitis, right hip (principal); M70.62 Trochanteric bursitis, left hip; M54.2 Cervicalgia
CPT/HCPCS: 97110; 97140; 97530

== ENCOUNTER 2025-03-16 16:15 | Outpatient (RCR) | payer BC, SELFPAY | END 2025-03-16 17:20 | disposition home or self-care (01) | LOC: ANHCPREHAB 16:15 | PROVIDERS: Visit Provider Internal Medicine Cardiovascular Disease | DX: Z95.5 Presence of coronary angioplasty implant and graft (principal) | CPT/HCPCS: 93798 ==

== ENCOUNTER 2025-07-03 15:11 | Outpatient (CLI) | payer BC, SELFPAY ==
[2025-07-03 16:32] LABS: Hematocrit 37.9 % (37.0-47.0); Hemoglobin 12.3 g/dL (12.0-15.0); Immature Granulocyte Percent A 0.0 % (0-0.5); Lymphocytes Absolute Auto 2.08 K/mm3 (0.9-3.2); Mean Corpuscular HGB Conc 32.5 g/dl (32-36); Mean Corpuscular Hemoglobin 28.5 pg (26-34); Mean Corpuscular Volume 87.9 fl (80-100); Nucleated Red Blood Cells Absolute Auto 0.000 K/mm3 (0.0-0.012); Nucleated Red Blood Cells Perc 0.0 % (0.0-0.2); Platelet Count Result 232 k/mm3 (150-375); Red Blood Count 4.31 M/mm3 (4.2-5.4); White Blood Count 4.6 K/mm3 (4.5-10.0)
[2025-07-03 16:45] LABS: Alanine Aminotransferase 16 U/L (6-35); Albumin Level 4.1 g/dL (3.5-5.1); Alkaline Phosphatase 114 U/L (38-126); Anion Gap 6 mmol/L (4-12); Aspartate Amino Transferase 38 U/L (14-36); Bilirubin,Total 0.4 mg/dL (0.2-1.3); Blood Urea Nitrogen 16 mg/dL (7-17); Calcium 9.2 mg/dL (8.4-10.2); Carbon Dioxide 27 mmol/L (22-30); Chloride 107 mmol/L (98-107); Estimated Glomerular Filt Rate > 60; Glucose 84 mg/dL (65-110); Potassium 3.5 mmol/L (3.4-5.0); Sodium 140 mmol/L (137-145); Total Protein 8.7 g/dL (6.3-8.2)
[2025-07-03 17:00] LABS: Free T3 3.80 pg/mL (2.71-6.16); Free T4 Free Thyroxine 1.36 ng/dL (0.78-2.19)
[2025-07-03 17:18] LABS: Thyroid Stimulating Hormone 1.180 uIU/mL (0.465-4.680)
--- OUTSIDE RECORDS SUMMARY | 2025-07-03 17:54 | XMS_ITS | Encounter Summary ---
Author Organization [facility] Address [address] [place] [phone] Phone Care Team Providers Care Honeycomb Decapper Name Role Phone Provider, None Primary Care Provider Unavailabl e Encounter Details Date Type Department Care Team (Late st Contact Info) Description 02/04/2023 Lab [facility]quisition [facility] [address] [place] [address] Crescencio Zhao, PAC [address] [place] [address] Encounter for pre-employment examination Social History Tobacco Use Types Packs/Day Years Used Date Smoking Tobacco: Never Assessed Comments Unknown Sex and Gender Information Value Date Recorded Sex Assigned at Not on file Legal Sex Female 10:27 PM CDT Gender Identity Not on file Sexual Orientation Not on file COVID-19 Exposure Response Date Recorded In the last 10 days, have yo u been in contact with someone who was confirmed or suspected to have Coronavirus/COVID-19? Unable to assess 02/04/2023 12:01 PM CDT documented as of this encounter Plan of Treatment Not on file documented as of this encounter Procedures Procedure Name Priority Date/Time Associated Diagnosis Comments QUANTIFERON-TB GOLD PLUS Routine 02/04/2023 11:30 AM CDT Encounter for pre-employment examination documented in this encounter Results * QUANTIFERON-TB GOLD PLUS (02/04/2023 11:30 AM CDT) NIL CONTROL 0.06 <8.01 IU/mL 02/06/2023 9:48 AM CDT [facility] TB ANTIGEN 1 0.03 <0.35 IU/mL 02/06/2023 9:48 AM CDT [facility] TB ANTIGEN 2 0.08 <0.35 IU/mL 02/06/2023 9:48 AM CDT [facility] MITOGEN CONTROL 9.94 >0.49 IU/mL 02/07/20 9:48 AM CDT [facility] INTEPRETATION TB NEGATIVE NEGATIVE, NEGATIVE (TB antigen response less than 25% of internal negative control value) 02/06/2023 9:48 AM CDT [facility] Comment:No immune response t o Mycobacterium tuberculosis antigens was noted. M. tuberculosis infection unlikely. Blood No Phlebotomy Charged / Unknown 02/04/2023 11:30 AM CDT 02/04/2023 3:45 PM CDT Narrative [facility] - 02/06/2023 9:48 AM CDT A POSITIVE QUANTIFERON-TB GOLD PLUS RESULT SHOULD NOT BE THE SOLE OR DEFINITIVE BASIS FOR DETERMINING INFECTION WITH M.TUBERCULOSIS. Diagnosing or excluding tuberculosis disease, and assessing the probability of LTBI, requires a combination of epidemiological, historical, medical and diagnostic findings (e.g., acid fast bacilli (AFB) smear and culture, chest xray) that should be taken into account when interpreting QFT-Plus results. Furthermore, the magnitude of the measured gamma interferon level cannot be correlated to stage or degree of infection, level of immune responsiveness, or likelihood for progression to active disease. The Nil control adjusts for background (e.g., elevated levels of circulating gamma interferon or presence of heterophile antibodies). The Mitogen control serves as an internal positive control and verifies each specimen tested can produce a gamma interferon response. Low mitogen may occur with insufficient lymphocytes, reduced lymphocyte activity due to improper specimen handling, filling/mixing of the mitogen tube, or inability of the patient's lymphocytes to generate gamma interferon. Infection with other Mycobacteria, including M. kansasii, M. szulgai, and M. marinum, may cause false positive results. A negative QuantiFERON-TB Gold Plus result does not preclude the possibility of M. tuberculosis infection or tuberculosis disease: false negative results can be due to incorrect blood sample collection/ improper handling of the specimen, stage of infection (e.g., specimen obtained prior to the development of cellular immune response), co-morbid conditions which affect immune function, or other individual immunological factors. The minimum number of lymphocytes required for a reliable test has not been established and may also be variable. Diagnostic testing for Mycobacterium tuberculosis using Interferon Gamma Release Assays should follow applicable published guidelines, including when testing in populations such as children, women, and HIV-infected or otherwise immunocompromised individuals. https://www.cdc.gov/tb/publications/guidelines/testing.htm us Crescencio Zhao PAC IMMUNOLOGY ORDERABLES Final Result [facility] [address] [place] [address], [place] documented in this encounter Visit Diagnoses Diagnosis Encounter for pre-employment examination Health examination of defined subpopulation documented in this encounter Care Teams Honeycomb Decapper Relationship Specialty Start Date End Date Provider, None [place] PCP - General 02/04/23 documented as of this encounter
--- OUTSIDE RECORDS SUMMARY | 2025-07-03 17:54 | XMS_ITS | Clinical Summary ---
Author Organization [facility] Address [address] [place] [phone] Phone Care Team Providers Care Head Usher Name Role Phone Provider, None Primary Care Provider Unavailabl e Social History Tobacco Use Types Packs/Day Years Used Date Smoking Tobacco: Never Assessed Comments Unknown Sex and Gender Information Value Date Recorded Sex Assigned at Not on file Legal Sex Female 10:27 PM CDT Gender Identity Not on file Sexual Orientation Not on file Plan of Treatment Health Maintenance Due Date Last Done Comments Hepatitis C Virus (HCV) Screening 1965 TdaP Immunization 1965 Varicella Immunization (1 of 2 - 13+ 2-dose series) 1978 Hepatitis B Immunization (1 of 3 - 19+ 3-dose series) 1984 Pap Smear 1986 Cervical Cancer Screening (CCS) 11/16/1995 HPV/Cotest 11/16/1995 Cologuard 2010 Colonoscopy 2010 Colorectal Cancer Screening 2010 Immunochemical Fecal Occult Blood 2010 Pneumococcal Immunization (5 0+ years) (1 of 1 - PCV) 11/16/2015 Zoster Immunization (1 of 2) 11/16/2015 Influenza Immunization (#1) 2025 SARS-COV-2 Immunization (2024- season) 2025 08/17/2021, 10/10/2020, 09/20/2020 Respiratory Syncytial Virus (RSV) Immunization (Adult) (1 - 1-dose 75+ series) 2040 Human Papillomavirus (HPV) Immunization Aged Out No longer eligible b ased on patient's age to complete this topic Meningococcal Immunization (ACWY) Aged Out No longer eligible b ased on patient's age to complete this topic Rotavirus Immunization Aged Out No lo nger eligible based on patient's age to complete this topic Care Teams Head Usher Relationship Specialty Start Date End Date Provider, None [place] PCP - General 02/04/23
--- OUTSIDE RECORDS SUMMARY | 2025-07-03 17:54 | XMS_ITS | Encounter Summary ---
Author Organization [facility] Address [address] [place] [address] Phone Care Team Providers Care Diecast Machine Operator Name Role Phone Kavya Dunn MD Primary Care Provider [phone] Aby Feldman NP Primary Care Provider [phone] Kavya Dunn MD Unavailable [phone] Ana Paula Spence MD Unavailable [phone] Kana Pugh Unavailable Julio Santos MD Unavailable [phone] Encounter Details Date Type Department Care Team (Late st Contact Info) Description 09/13/2021 Orders Only [facility] Scanning, Provider Social History Tobacco Use Types Packs/Day Years Used Date Smoking Tobacco: Never Alcohol Use Standard Drinks/Week Comments No 0 (1 standard drink = 0.6 oz pur e alcohol) AUDIT-C Answer Date Recorded Q1: How often do you have a drink containing alc ohol? Never 04/03/2021 Average Number of Drinks Not on file 021 Q3: How often do you have si x or more drinks on one occasion? Never 04/03/2021 Comments Unknown Sex and Gender Information Value Date Recorded Sex Assigned at Not on file Legal Sex Female 12:53 AM ORDER BOOKER Gender Identity Not on file Sexual Orientation Not on file documented as of this encounter Plan of Treatment Not on file documented as of this encounter Procedures Procedure Name Priority Date/Time Associated Diagnosis Comments SCAN - RADIOLOGY/IMAGING 09/13/2021 SCAN - LABS 09/13/2021 CARDIOLOGY DOCUMENT SCAN 09/13/2021 documented in this encounter Results * SCAN - LABS (09/13/2021) us Provider Scanning Final Result * SCAN - RADIOLOGY/IMAGING (09/13/2021) Anatomical Region Laterality Modality Other us Provider Scanning Edited Result - Final * SCAN - CARDIOLOGY (09/13/2021) Anatomical Region Laterality Modality Other us Provider Scanning CV CARDIAC SERVICES PROCEDURES Edited Result - Final documented in this encounter Visit Diagnoses Not on filedocumented in this encounter Additional Health Concerns Infection Onset Date Last Indicated Resolved Time COVID: Suspected 03/07/2025 03/07/2025 03/07/2025 10:05 AM CDT documented as of this encounter Care Teams Diecast Machine Operator Relationship Specialty Start Date End Date Kavya Dunn MD [address] [place] [address] PCP - General 10/12/17 02/24/23 bAy Feldman NP [address] [facility] [address] [place], [place] [id number] PCP - General Family Medicine 02/25/23 Kavya Dunn MD [address] [place] [address] Consulting Physician Rheumatology 02/25/23 Ana Paula Spence MD [address] [place] [address] [address] [place] [address] Cardiology 02/25/23 Kana Pugh PA [address] [place] [address] Physician Keeler Polygraph Operator 02/25/23 Julio Santos MD [address] [facility] [address] [place], [place] [id number] Referring Physician Obstetrics and Gynecology 02/25/23 documented as of this encounter
--- OUTSIDE RECORDS SUMMARY | 2025-07-03 17:54 | XMS_ITS | Clinical Summary ---
Author Organization [facility] Address [address] [place] [address] Care Team Providers Care Cans Vacuum Tester Name Role Phone Aby Feldman NP Primary Care Provider [phone] Kavya Dunn MD Unavailable [phone] Ana Paula Spence MD Unavailable [phone] Kana Pugh Unavailable Julio Santos MD Unavailable [phone] Allergies No known active allergies Medications multivit-iron- ZQ-ahuebvm-csv s 18 mg iron-400 mcg-500 mg Ca tablet daily. 11/26/19 12 Active clobetasoL (TEMOVATE) 0.05 % cream Apply and massage into affected areas twice daily 60 g 1 03/06/20 23 Active triamcinolone (KENALOG) 0.1 % cream APPLY CREAM EXTERNALLY TWICE DAILY 30 g 03/21/20 24 Active rosuvastatin (CRESTOR) 5 mg tablet Take 1 tablet (5 mg total) by mouth daily Active metoprolol XL (TOPROL-XL) 50 mg extended release tablet 1 tablet (50 mg total) 09/06/19 25 Active potassium chloride ER 20 mEq CR tablet 09/14/19 25 Active MAGNESIUM ORAL Take by mouth A ctive Eliquis 5 mg tablet 1 tablet (5 mg total) 09/06/19 25 Active Plavix 75 mg tablet 1 tablet (75 mg total) 11/30/[address] (PROTONIX) 40 mg EC tablet TAKE 1 TABLET DAILY 90 tablet 1 12/16/19 25 Active ALPRAZolam (XANAX) 0.25 mg tablet TAKE 1 TABLET BY MOUTH NIGHTLY NEEDED FOR ANXIETY 30 tablet 01/04/20 25 Active methIMAzole (TAPAZOLE) 5 mg tablet Take 1 tablet (5 mg total) by mouth daily 02/16/20 25 Active amLODIPine (NORVASC) 5 mg tablet TAKE 1 TABLET DAILY 90 tablet 3 06/05/20 25 Active albuterol HFA (PROVENTIL HFA,VENTOLIN HFA,PROAIR HFA) 90 mcg/actuation inhaler Inhale 2 puffs every 6 (six) hours as needed for wheezing 1 each 1 06/14/20 25 026 Active albuterol HFA (PROVENTIL HFA,VENTOLIN HFA,PROAIR HFA) 90 mcg/actuation inhaler Inhale 2 puffs every 6 (six) hours as needed for wheezing 1 each 1 08/17/19 25 025 Discontinued(Re order) amLODIPine (NORVASC) 5 mg tablet Take 1 tablet (5 mg total) by mouth daily 90 tablet 01/10/20 25 025 Discontinued Active Problems Problem Noted Date Diagnosed Date Hyperthyroidism 04/21/2025 Assessment & Plan (04/21/2025 1:20 PM CDT): Pt follows with Endo at [facility]. Continuing current regimen and monitoring per specialist. Bronchiectasis 10/18/2024 Coronary artery disease 10/18/2024 Pulmonary infiltrates 10/18/2024 Pulmonary nodules 10/18/2024 Lower extremity edema 08/17/2024 Left arm numbness 08/17/2024 Anginal equivalent 08/17/2024 Short of breath on exertion 08/17/2024 Trochanteric bursitis of both hips 01/26/2023 Assessment & Plan (12/12/2024 9:25 AM CDT): Status post bilateral injections today Assessment & Plan (06/10/2024 8:08 AM CDT): Patient has request injection today and this was completed successfully. She was given orders for physical therapy to be performed locally for both her hips as well as she is having some cervical spine discomfort Assessment & Plan (08/12/2023 9:36 AM [employer]): Refer for physical therapy, trial of meloxicam 15 mg prn and if no relief she will return for injection Assessment & Plan (01/26/2023 10:11 AM CDT): She is on optimized NSAID and will perform targeted injection today and refer to physical therapy. If no improvement, I recommend bilateral x-ray Glenoid labrum tear 10/27/2022 Myofascial pain syndrome 08/26/2022 Osteoarthritis of right glenohumeral joint 08/26 Atrial fibrillation 07/28/2022 Assessment & Plan (04/21/2025 1:19 PM CDT): Asymptomatic today, follows with Cardiology. Continues Toprol-XL and ASA. Assessment & Plan (05/05/2024 9:02 AM CDT): Asymptomatic today, follows with Cardiology. Continues Toprol-XL and ASA. Patient also notes she was dx with CAD. Rosuvastatin was added. Assessment & Plan (02/26/2023 9:58 AM CDT): Asymptomatic today, follows with Cardiology. Continues Toprol-XL and ASA. Osteoarthritis of right knee 05/08/2022 Osteoarthritis of left knee 02/27/2022 Menopause 01/27/2022 Interstitial lung disease 01/27/2022 Assessment & Plan (08/17/2024 4:23 PM [employer]): It is noted she does have a history of interstitial lung disease found on a CT scan in 2021. Generalized anxiety disorder 04/03/2021 Assessment & Plan (02/26/2023 9:58 AM CDT): Uses Alprazolam prn nightly. Uses sparingly. Trigger little finger of right hand 08/18/2019 Assessment & Plan (04/02/2020 8:54 AM CDT): Status post injection today Assessment & Plan (08/18/2019 4:20 PM [employer]): Status post trigger finger injection Trigger thumb of right hand 05/19/2019 Assessment & Plan (07/11/2020 1:58 PM [employer]): Status post injection today; we discussed that she may be developing sclerodactyly but it is not in the digit that she has triggering Assessment & Plan (11/30/2019 11:00 AM CDT): Status post injection today Assessment & Plan (05/19/2019 4:51 PM CDT): Status post flexor tendon sheath injection today Hypertension 11/25/2018 Assessment & Plan (04/21/2025 1:19 PM CDT): BP has been stable, continues Amlodipine and Toprol-XL. Up to date with labs per specialists. Assessment & Plan (05/05/2024 9:01 AM CDT): BP normal in office, continues Amlodipine and Toprol-XL. Updated labs ordered Assessment & Plan (02/26/2023 9:57 AM CDT): BP ok in office today, pt states home BP's ranging 130-135/80-85. Will continue with the Amlodipine 5 mg daily. Assessment & Plan (01/26/2023 10:09 AM CDT): Excellent control on current regimen; assess renal function today Assessment & Plan (11/30/2019 11:00 AM CDT): Patient attributes suboptimal control today to the stress of the pandemic and will monitor at home. Assessment & Plan (08/18/2019 5:16 PM [employer]): I will check electrolytes from her diuretic and renew this but I would like to see her on therapy to see if her blood pressure control is more optimized. Assessment & Plan (05/19/2019 4:56 PM CDT): Sub optimal control over the last few visits and I will add hydrochlorothiazide-triamterene to her regimen. I have advised her she will need an additional BMP after 1 month of treatment. Assessment & Plan (11/25/2018 3:44 PM CDT): She has been on amlodipine for both treatment of her Raynaud's phenomena as well as her blood pressure. Repeat blood pressures today were normal after being allowed to sit for 5 minutes Degenerative cervical spinal stenosis 07/29/2016 Assessment & Plan (08/18/2019 5:17 PM [employer]): Prior C-spine films reviewed with the patient and we will give her a new referral to physical therapy Gastroesophageal reflux disease without esophagi tis 10/30/2015 Assessment & Plan (04/21/2025 1:19 PM CDT): Continues PPI therapy, pt desires to see GI. Referral placed. Discoid lupus erythematosus 09/28/2012 Assessment & Plan (02/26/2023 9:58 AM CDT): Following with Dr Dunn (Rheum). Assessment & Plan (01/26/2023 10:09 AM CDT): No interval skin lesion Assessment & Plan (11/30/2019 11:02 AM CDT): Cutaneous lesions on her left hand and will refill clobetasol today Other forms of systemic lupus erythematosus 11/08 Assessment & Plan (04/21/2025 1:18 PM CDT): Following with Dr Dunn (Rheum) Assessment & Plan (08/12/2023 9:37 AM [employer]): Minor flare-up in an old discoid lesion but no interval symptoms to suggest active systemic disease and blood pressure is well controlled today. We will screen for systemic disease and she would like to have this the time of seen her primary care physician later this week Assessment & Plan (01/26/2023 10:10 AM CDT): Assess CBC, renal function Assessment & Plan (08/18/2019 5:16 PM [employer]): Clinically she is having more inflammatory arthralgias and previously took hydroxychloroquine without benefit and really does not want to go back on this. It was ineffective for her discoid lesions. I have discussed the risks and benefits of methotrexate week with her and would start her on 10 mg weekly if liver function tests are normal. I would like to recheck rheumatoid factor and CCP. Assessment & Plan (05/19/2019 4:55 PM CDT): Clinically she has had some minor increase in her cutaneous lesions and just is generally not felt as well but also has under significant amount of stress. We will check disease specific markers today. Her hypertension is less controlled and we will screen serum creatinine today. She also has a trigger finger today that was injected. Assessment & Plan (11/25/2018 3:43 PM CDT): Clinically she has no new signs of disease activity in internal organs. She has ongoing Raynaud's phenomena and no new discoid lesions. She is not interested in any additional therapy and has done well with simply symptomatic treatment. Resolved Problems Problem Noted Date Diagnosed Date Resolved Date Upper back pain on left side 08/17/2024 12/11/2024 Acute cough 08/17/2024 12/11/2024 Assessment & Plan (08/17/2024 4:23 PM [employer]): Will get chest x-ray today. Will presume pneumonia given crackles and pain. Will treat with doxycycline b.i.d. for 10 days. I also gave her an albuterol inhaler to use p.r.n.. Knee pain 11/13/2022 12/11/2024 Pain in joint of right shoulder 10/17/2022 12/11/2024 Myofascial pain syndrome 08/25/202211/2024 Arthralgia of both knees 04/24/202211/2024 Abnormal findings on diagnos tic imaging of lung 10/02/2021 12/11/2024 Assessment & Plan (01/26/2023 10:09 AM CDT): Patient instructed to locate CT for my review or we need to schedule a new CT given the potential for I LD Trigger little finger of right hand 11/25/2018 05/19/2019 Assessment & Plan (11/25/2018 3:42 PM CDT): Status post flexor tendon sheath injection today Encounters Date Type Department Care Team Description 06/14/2025 9:45 AM [employer] Lab [facility] at [address] [address] Other systemic lupus erythematosus with lung involvement 06/14/2025 8:20 AM [employer] Office Visit [facility] Medicine Rheumatology [address] [place] [address] Medical Office Building [address] [place] [address] Kavya uDnn MD Discoid lupus erythematosus (Primary Dx); Other systemic lupus erythematosus with lung involvement 04/21/2025 8:30 AM CDT Telemedicine [facility] at [address] [address] Aby Feldman NP Paroxysmal atrial fibrillation (HCC) (Primary Dx); PND (post-nasal drip); Colon cancer screening; Gastroesophageal reflux disease without esophagitis; Other forms of systemic lupus erythematosus, unspecified organ involvement status (HCC); Hypertension, unspecified type; Hyperthyroidism from Last 3 Months Immunizations Immunization Administration Dates Next Due Influenza, Trivalent, Preser vative Free, Intramuscular 09/08/2013,07/14/2012 Influenza, Unspecified 10/18/2024(Deferr ed: Patient Refused),08/10/2023,06/16/2023, 023(Deferred: Patient Refused),08/11/2021(Deferred: Patient Refused),08/10/2021(Deferred: Patient Refused) Surgical History Surgery Date Site/Laterality Comments OR VAGINAL HYSTERECTOMY UTER US 250 GM/< Vaginal Hysterectomy - (Added by TW Conv) Medical History Medical History Date Comments Systemic lupus erythematosus (HCC) Systemic lupus erythematosus - [employer], SSA+ (Added by TW Conv) A-fib (HCC) 06/15/2022 Bronchitis 07/2023 Family History Medical History Relation Name Comments Alcohol abuse Father Cirrhosis Father Breast cancer Neg Hx Ovarian cancer Neg Hx Pancreatic cancer Neg Hx Prostate cancer Neg Hx Relation Name Status Comments Father Mother Social History Tobacco Use Types Packs/Day Years Used Date Smoking Tobacco: Never Passive Smoke Exposure: Never Smokeless Tobacco: Never Tobacco Cessation:Counseling Given: Not Answered Alcohol Use Standard Drinks/Week Comments No 0 (1 standard drink = 0.6 oz pur e alcohol) PHQ-2 Answer Date Recorded PHQ-2 Total Score (If total score is 3 or more points, staff should administer the PHQ-9) 0 04/21/2025 AUDIT-C Answer Date Recorded Frequency of Alcohol Consumption Not on file 06/14/2025 Q2: How many drinks containi ng alcohol do you have on a typical day when you are drinking? Patient does not drink Frequency of Binge Drinking Not on file 12/2024 Comments Unknown Sex and Gender Information Value Date Recorded Sex Assigned at Not on file Legal Sex Female 12:53 AM [employer] Gender Identity Not on file Sexual Orientation Not on file Obstetrics History Para Term AB IAB SAB Ectopic Multiple Livin g Live Births 4 4 4 Date Outcome GA Total Labor Labor//3rd Weight Sex Type Anes PTL Michelle A1 A5 Name Clin Term Term Term Term Last Filed Vital Signs Vital Sign Reading Time Taken Comments Blood Pressure 148/79 06/14/2025 8:19 AM [employer] Pulse 55 06/14/2025 8:19 AM [employer] Temperature 36.5 C (97.7 F) 06/14/2025 8:19 AM [employer] Respiratory Rate 20 03/07/2025 9:43 AM CDT Oxygen Saturation 100% 06/14/2025 8:19 AM [employer] Inhaled Oxygen Concentration - - Weight 78.3 kg (172 lb 11.2 oz) 06/14/2025 8:19 AM [employer] Height 172.7 cm (5' 8) 06/14/2025 8:19 AM [employer] Body Mass Index 26.26 06/14/2025 8:19 AM [employer] Plan of Treatment Health Maintenance Due Date Last Done Comments DTaP/Tdap/Td Vaccine (1 - Tdap) 1976 Hepatitis B Screening 11/16/1983 Covid-19 Vaccine ( season) 2025 08/17/2021, 10/10/2020, 09/20/2020 Influenza Vaccine (#1) 2025 , 06/16/2023, 09/08/2013, Additional history exists Regular Well Visit/Exam 18-64 05/05/2025 05/05/2024 Breast Cancer Screening-Mammogram 07/04/2025 07/04/2024 Zoster Vaccine (1 of 2) 10/18/2025 Post poned from 11/16/2015 (Insurance / Financial) Depression Screening 04/21/2026 04/21/2025, 10/18/2024, 05/05/2024, Additional history exists Cervical Cancer Screening 08/09/2026 Po stponed from 1965 (Provider's clinical decision) Colon Cancer Screening-Colonoscopy 10/14/2027 10/13/2017 Colon Cancer Screening-CT Colonography Discontinued 10/13/2017 Colon Cancer Screening-DNA Stool Discontinued 10/13/2017 Colon Cancer Screening-FIT Discontinued 10/13/2017 Colon Cancer Screening-Sigmoidoscopy Discontinued 10/13/2017 Hepatitis C Screening Completed 05/05/2024 Pneumococcal vaccine <65 Aged Out No longer eligible based on patient's age to complete this topic Procedures Procedure Name Priority Date/Time Associated Diagnosis Comments EGFR Routine 06/14/2025 9:18 AM [employer] Other systemic lupus erythematosus with lung involvement DIFFERENTIAL AUTO Routine 06/14/2025 9:1 8 AM [employer] Other systemic lupus erythematosus with lung involvement CBC WITH AUTO DIFFERENTIAL Routine 06/14/2025 9:18 AM [employer] Other systemic lupus erythematosus with lung involvement COMPREHENSIVE METABOLIC PANEL Routine 06/14/2025 9:18 AM [employer] Other systemic lupus erythematosus with lung involvement ERYTHROCYTE SEDIMENTATION RATE Routine 06/14/2025 9:18 AM [employer] Other systemic lupus erythematosus with lung involvement ANTI-DOUBLE STRANDED DNA ANTIBODIES Routine 06/14/2025 9:18 AM [employer] Other systemic lupus erythematosus with lung involvement C4 COMPLEMENT Routine 06/14/2025 9:18 AM [employer] Other systemic lupus erythematosus with lung involvement C3 COMPLEMENT Routine 06/14/2025 9:18 AM [employer] Other systemic lupus erythematosus with lung involvement LUPUS ANTICOAGULANT PANEL PLUS REFLEXES Routine 06/14/2025 9:18 AM [employer] Other systemic lupus erythematosus with lung involvement SCREENING MAMMOGRAM BILATERAL W BECKY Schedule Routine, Read Routine (OP Routine) 07/04/2024 2:38 PM [employer] Breast cancer screening by mammogram HEPATITIS C ANTIBODY Routine 05/05/2024 9:02 AM CDT Encounter for hepatitis C screening test for low risk patient COLONOSCOPY REPORT 10/13/2017 from Last 3 Months or Most Recently Relevant to Health Maintenance Results * (ABNORMAL) Lupus Anticoagulant Panel plus Reflexes (06/14/2025 9:18 AM [employer]) PT 16.4(H) 10.2 - 13.5 sec Comment:Testing performed by : [facility], [address] [place]., [address] INR 1.46(H) 0.90 - 1.20 LARA RODRÍGEUZ Comment: Interpretive data Oral anticoagulant therapeutic ranges: Venous thromboembolism prophylaxis or treatment: 2.0-3.0 CARDIOLOGY Standard range: 2.0-3.0 High-intensity range: 2.5-3.5 Refer to indication-specific guidelines for appropriate target ranges for prosthetic heart valve replacement. Current interpretive data was last revised on 2019. Testing performed by: [facility], [address] [place]., [address] aPTT 35 26 - 38 sec LARA RODRÍGUEZ Comment: Interpretive Data Heparin therapeutic range: 66.0 - 100.0 seconds. Range based on correlation with therapeutic heparin activity range of 0.3 - 0.7 Units/mL. Testing performed by: [facility], [address] [place]., [address] DRVVT screen ratio 1.37(H) 0.00 - 1.20 Ratio CERNER BJW[facility] Comment:Testing performed by : [facility], [address] [place]., [address] DRVVT confirm ratio 2.76 Ratio CERNER B[facility] Comment:Testing performed by : [facility], [address] [place]., [address] DRVVT S/C Ratio 0.50 0.00 - 1.20 Ratio CERNER [facility] Comment:Testing performed by : [facility], [address] [place]., [address] SCT Screen Ratio 1.10 0.00 - 1.16 Ratio CERNER [facility] Comment:Testing performed by : [facility], [address] [place]., [address] Lupus anticoagulant, interp Negative [facility] Comment: Interpretive data Lupus anticoagulants (LA) are acquired autoantibodies that interfere with invitro clotting in a phospholipid-dependent manner and are associated with an increased risk of thromboembolic events and complications. Routine APTT and PT reagents are not sensitive to inhibition by LA, and should not be used as screening tests. The laboratory follows ISTH 2009 guidelines (Pengo, 2009) for LA testing and interpretation: Two sensitive methods performed in parallel improve sensitivity. One activates the intrinsic pathway (Silica-APTT) and one activates the common pathway (dilute Gordon's viper venom time - dRVVT). Each method begins with a SCREEN step, and if neither is prolonged, no further testing is performed and the interpretation is: NO LA DETECTED. If either screening test is prolonged, then additional steps are performed to provide specificity. A POSITIVE LA result occurs if either one or both tests produce a positive CONFIRM result. An INDETERMINATE result means results cannot distinguish between coagulopathy and a weak LA. Consider retesting when PT/INR is less prolonged, if clinical indicated. To support laboratory confirmation of antiphospholipid syndrome, persistence of a positive LA result should be verified by repeat testing at least 12 weeks later (Paolo, 2006). Prior to LA testing, the laboratory screens patient plasma samples for evidence of heparin contamination, which is neutralized prior to LA testing, and the following interfering conditions which require canceling LA testing: INR >3.0, fibrinogen < 100 mg/dl, use of direct oral or IV anticoagulants other than heparin. References: 1) Walkero V, Keyana A, [place] JH, Orkaleyl TL, Vida M, De Joanna PG. Update of the guidelines for lupus anticoagulant detection. J Thromb Haemost. 2009; 7:8758-9466. 2. Paolo S. et al. International consensus statement on an update of the classification criteria for definite antiphospholipid syndrome (APS). J Thromb Haemost. 2006; 4:295-306. Current interpretive data was last revised on 2018 Testing performed by: [facility], [address] [place] [address]., [address] Blood 06/14/2025 9:18 AM [employer] 06/15/2025 8:12 AM [employer] Kavya Dunn MD LAB BLOOD ORDERABLES Final R [facility] Performing Organization Address [facility] Co de Phone Number [facility] [phone] [employer] [address] * Anti-double stranded DNA abs (06/14/2025 9:18 AM [employer]) [facility] dsDNA Ab 1.0 <=4.0 IUnits/mL Comment: Interpretive Data Negative: < or = 4 IUnits/mL Indeterminate: 5 - 9 IUnits/mL Positive: > or = 10 IUnits/mL Current interpretive data was last revised on 2016. Testing performed by: [facility], [address] [place] [address]., [address] Blood 06/14/2025 9:18 AM [employer] 06/14/2025 11:37 AM [employer] Kavya Dunn MD LAB BLOOD ORDERABLES Final R esult Performing Organization Address [facility] Co de Phone Number [facility] [address] [employer] [place] [address] * eGFR (06/14/2025 9:18 AM [employer]) eGFR >90 >=60 mL/min/1. 73 m2 Comment: Interpretive Data Reference Interval Normal >/= 90 mL/min/1.73m2 Mildly decreased* 60 - 89 mL/min/1.73m2 Mildly to moderately decreased 45 - 59 mL/min/1.73m2 Moderately to severely decreased 30 - 44 mL/min/1.73m2 Severely decreased 15 - 29 mL/min/1.73m2 Kidney Failure < 15 mL/min/1.73m2 *Relative to young adult level Estimated glomerular filtration rate is determined by the 2020 CKD-EPI equation recommended by the National Kidney Foundation (A Unifying Approach to GFR Estimation: Recommendations of the NKF-ASK Task Force on Reassessing the Inclusion of Race in Diagnosing Kidney Disease, JASN 2020). The CKD-EPI equation should not be used for patients with unstable renal function and has not been validated in children and those over 70. Current interpretive data was last reviewed 2021. Testing performed by: [facility], [address] [place] [address] Blood 06/14/2025 9:18 AM [employer] 06/14/2025 9:41 AM [employer] us Kavya Dunn MD LAB BLOOD ORDERABLES Final R esult [facility] [address] [address] Department [place] [address] * Differential, auto (06/14/2025 9:18 AM [employer]) Pathologist [facility] Neutrophil abs 2.09 1.50 - 6.50 K/cumm Comment:Testing performed by : [facility], [facility], [address] [place] [address] Imm gran abs 0.01 0.00 - 0.10 K/cumm LARA RODRÍGUEZ Comment:Testing performed by : [facility], [facility], [address] [place] [address] Lymphocyte abs 1.45 0.80 - 3.30 K/cumm CERNER [facility] Comment:Testing performed by : [facility], [facility], [address] [place] [address] Monocyte abs 0.66 0.20 - 0.80 K/cumm CERNER [facility] Comment:Testing performed by : [facility], [facility], [address] [place] [address] Eosinophil abs 0.05 0.00 - 0.50 K/cumm CERNER BJW[facility] Comment:Testing performed by : [facility], [facility], [address] [place] [address] Basophil abs 0.01 0.00 - 0.10 K/cumm CERNER BJ[facility] Comment:Testing performed by : [facility], [facility], [address] [place] [address] Neutrophil pct 48.9 % CERNER BJW[facility] Comment: Interpretive Data Percent cell count reference ranges are not reported, since discordance with absolute values may lead to misinterpretation of CBC data. Current Interpretive Data was last revised on 2017. Testing performed by: [facility], [facility], [address] [place] [address] Imm gran pct 0.2 % CERNER [facility] Comment: Interpretive Data Percent cell count reference ranges are not reported, since discordance with absolute values may lead to misinterpretation of CBC data. Current Interpretive Data was last revised on 2017. Testing performed by: [facility] [place], [facility], [address] [place] [address] Lymphocyte pct 34.0 % [facility] Comment: Interpretive Data Percent cell count reference ranges are not reported, since discordance with absolute values may lead to misinterpretation of CBC data. Current Interpretive Data was last revised on 2017. Testing performed by: [facility] [place], [facility], [address] [place] [address] Monocyte pct 15.5 % [facility] Comment: Interpretive Data Percent cell count reference ranges are not reported, since discordance with absolute values may lead to misinterpretation of CBC data. Current Interpretive Data was last revised on 2017. Testing performed by: [facility] [place], [facility], [address] [place] [address] Eosinophil pct 1.2 % [facility] Comment: Interpretive Data Percent cell count reference ranges are not reported, since discordance with absolute values may lead to misinterpretation of CBC data. Current Interpretive Data was last revised on 2017. Testing performed by: [facility] [place], [facility], [address] [place] [address] Basophil pct 0.2 % [facility] Comment: Interpretive Data Percent cell count reference ranges are not reported, since discordance with absolute values may lead to misinterpretation of CBC data. Current Interpretive Data was last revised on 2017. Testing performed by: [facility] [place], [facility], [address] [place] [address] Blood 06/14/2025 9:18 AM [employer] 06/14/2025 9:19 AM [employer] Kavya Dunn MD LAB BLOOD ORDERABLES Final R esult Performing Organization Address City/[facility]/ZIP Co de Phone Number [facility] [address] [facility] [address] * C4 complement (06/14/2025 9:18 AM [employer]) Complement C4 22 10 - 40 mg/dL Comment:Testing performed by : [facility], [facility], [place] [address] Blood 06/14/2025 9:18 AM [employer] 06/14/2025 3:50 PM [employer] Kavya Dunn MD LAB BLOOD ORDERABLES Final R esult [facility] [address] [facility]. [facility] [place] [address] * CBC with auto differential (06/14/2025 9:18 AM [employer]) WBC 4.27 3.80 - 9.90 K/cumm Comment:Testing performed by : [place] [address], [address], [place] [address] Hgb 13.3 11.9 - 15.5 g/dL [facility] Comment:Testing performed by : [place] [address], [address], [place] [address] Hct 40.6 35.6 - 45.5 % [facility] Comment:Testing performed by : [place] [address] [place] [address] Plt 284 150 - 400 K/cumm [facility] Comment:Testing performed by : [place] [address] [place] [address] MPV 11.1 9.1 - 12.3 fL [facility] Comment:Testing performed by : [place] [address], [place] [address] RBC 4.65 3.90 - 5.20 M/cumm [facility] Comment:Testing performed by : [place] [address], [address] [place] [address] MCV 87.3 81.3 - 96.4 fL [facility] Comment:Testing performed by : [place] [address], [address] [place] [address] MCH 28.6 27.1 - 33.3 pg [facility] Comment:Testing performed by : [place] [address], [address] [place] [address] MCHC 32.8 32.3 - 35.7 g/dL [facility] Comment:Testing performed by : [place] [address], [address] [place] [address] RDW CV 12.9 11.1 - 14.9 % [facility] Comment:Testing performed by : [facility], [facility], [address] [place] [address] RDW SD 41.0 35.7 - 48.1 fL LARA RODRÍGUEZ Comment:Testing performed by : [facility] [place], [facility], [address] [place] [address] ANC Prelim 2.09 1.50 - 6.50 K/cumm LARA RODRÍGUEZ Comment: Interpretive Data The rapid ANC is a preliminary automated count and may vary from the final ANC (Neut Abs) reported in the WBC differential that follows. Current interpretive data was last revised 2024. Testing performed by: [facility] [place], [facility], [address] [place] [address] Blood 06/14/2025 9:18 AM [employer] 06/14/2025 9:19 AM [employer] Kavya Dunn MD LAB BLOOD ORDERABLES Final R esult Performing Organization Address City/[facility]/ZIP Co de Phone Number [facility] [address] [facility]. [facility] [place] [address] * (ABNORMAL) Erythrocyte sedimentation rate (06/14/2025 9:18 AM [employer]) [facility] Erythrocyte sedimentation rate 49(H) 1 - 30 mm/hr Comment:Testing performed by : [facility], [address] [place] [address] Blood 06/14/2025 9:18 AM [employer] 06/14/2025 9:41 AM [employer] Kavya Dunn MD LAB BLOOD ORDERABLES Final R esult [facility] [address] [facility]. [facility] [employer] [place] [address] * C3 complement (06/14/2025 9:18 AM [employer]) Pathologist [facility] Complement C3 167 90 - 180 mg/dL Comment:Testing performed by : [facility], [address] [facility], [place]., [address] Blood 06/14/2025 9:18 AM [employer] 06/14/2025 3:50 PM [employer] us Kavya Dunn MD LAB BLOOD ORDERABLES Final R esult [facility] [address] Department [place] [address] * (ABNORMAL) Comprehensive metabolic panel (06/14/2025 9:18 AM [employer]) Sodium 141 135 - 145 mmol/L Comment:Testing performed by : [facility], [address], [place] [address] Potassium, pl 3.9 3.3 - 4.9 mmol/L LARA RODRÍGUEZ Comment:Testing performed by : [facility], [address], [place] [address] Chloride 106 97 - 110 mmol/L LARA RODRÍGUEZ Comment:Testing performed by : [facility], [address], [place] [address] CO2 26 22 - 32 mmol/L LARA RODRÍGUEZ Comment:Testing performed by : [facility], [address], [place] [address] Anion gap 9 2 - 15 mmol/L LARA RODRÍGUEZ Comment:Testing performed by : [facility], [address], [place] [address] BUN 16 6 - 25 mg/dL LARA RODRÍGUEZ Comment:Testing performed by : [facility], [address], [place] [address] Creatinine 0.54(L) 0.60 - 1.10 mg/dL LARA RODRÍGUEZ Comment:Testing performed by : [facility], [address], [place] [address] Glucose 92 70 - 199 mg/dL LARA RODRÍGUEZ Comment: Interpretive Data Fasting glucose >/= 126 mg/dl is diagnostic for diabetes. Fasting is defined as no caloric intake for at least 8 hours. Fasting glucose between 100 mg/dl to 125 mg/dl is diagnostic of prediabetes. In a patient with classic symptoms of hyperglycemia or hyperglycemic crisis, a random glucose >/= 200 mg/dl is diagnostic for diabetes. In the absence of unequivocal hyperglycemia, results should be confirmed by repeat testing. The classification and Diagnosis of Diabetes Diabetes Care 2021; 46: S19-S40. Testing performed by: [facility], [address], [place] [address] Calcium 10.0 8.5 - 10.3 mg/dL [facility] Comment:Testing performed by : [facility], [address], [place] [address] Bilirubin, total 0.6 0.1 - 1.2 mg/dL [facility] Comment:Testing performed by : [facility], [address], [place] [address] Protein, pl 8.5 6.5 - 8.5 g/dL [facility] Comment:Testing performed by : [facility], [address], [place] [address] Albumin 4.0 3.5 - 5.0 g/dL [facility] Comment:Testing performed by : [facility], [address], [place] [address] Alk phos 123 40 - 130 Units/L [facility] Comment:Testing performed by : [facility], [address], [place] [address] ALT 12 7 - 45 Units/L [facility] Comment:Testing performed by : [facility], [address], [place] [address] AST 28 10 - 45 Units/L [facility] Comment:Testing performed by : [facility], [address], [place] [address] Blood 06/14/2025 9:18 AM [employer] 06/14/2025 9:41 AM [employer] us Kavya Dunn MD LAB BLOOD ORDERABLES Final R esult [facility] [address] [facility]. [place] [address] * (ABNORMAL) SCREENING MAMMOGRAM BILATERAL W BECKY (07/04/2024 2:38 PM [employer]) Anatomical Region Laterality Modality Breast Bilateral Mammography 07/14/2024 10:2 0 AM [employer] Impressions 07/14/2024 10:20 AM [employer] Prominent RIGHT axillary lymph node. RIGHT axillary ultrasound is recommended. FINAL ASSESSMENT: BI-RADS Category 0: Incomplete - Need Additional Imaging Evaluation. RECOMMENDATION: Findings in the right breast require additional evaluation. An ultrasound exam is recommended at this time. Ultrasound of the RIGHT axilla. Electronically signed by: Cynthia Sevilla M.D. Narrative 07/14/2024 10:20 AM [employer] EXAMINATION: BILATERAL SCREENING MAMMOGRAM COMPARISON: All prior mammograms dating back to 2018. TECHNIQUE: Full-field 2D and digital breast tomosynthesis (DBT) images were obtained. CAD was utilized. BREAST PARENCHYMAL COMPOSITION: There are scattered areas of fibroglandular density. FINDINGS: There is a prominent lymph node in the RIGHT axilla. There is no suspicious abnormality in the LEFT breast. Aby Feldman NP IMG MAMMO PROCEDURES Final Resul t * Hepatitis C antibody Blood (05/05/2024 9:02 AM CDT) Hep C Ab Nonreactive Nonreactive Comment: Interpretive Data Nonreactive: Antibodies to HCV not detected. Does NOT exclude the possibility of recent exposure to HCV. Equivocal: Equivocal for HCV antibodies. Supplemental molecular testing will be automatically performed to determine infection status in accordance with current CDC screening recommendations. Reactive: Positive for HCV antibodies. This may represent current or past HCV infection. Supplemental molecular testing will be automatically performed to determine current infection status in accordance with current CDC screening recommendations. Interpretive data was last revised on 2019. Blood 05/05/2024 9:02 AM CDT 05/05/2024 2:22 PM CDT Aby Feldman NP LAB MICROBIOLOGY - GENERAL ORDER ALEXUS Final Result Performing Organization Address City/State/ZIP Co nv Phone Number LARA JOHNSON [id number] Department [place] [address] * COLONOSCOPY REPORT (10/13/2017) Anatomical Region Laterality Modality Other Provider Scanning GI PROCEDURE ORDERABLES Final Result from Last 3 Months or Most Recently Relevant to Health Maintenance Insurance [employer] [place] [employer] [place] [phone] [facility] Teams Cans Vacuum Tester Relationship Specialty Start Date End Date Aby Feldman, MUSEUM SERVICE SCHEDULER [address] [facility] [address] [place], [place] [id number] PCP - General Family Medicine 02/25/23 Kavya Dunn MD [address] [place] [address] Consulting Physician Rheumatology 02/25/23 Ana Paula Spence MD [address] [place] [address] Cardiology 02/25/23 Kana Pugh PA [address] [place] [address] Physician Institutional Cook 02/25/23 Julio Santos MD [address] [place] [address] Referring Physician Obstetrics and Gynecology 02/25/23
--- OUTSIDE RECORDS SUMMARY | 2025-07-03 17:54 | XMS_ITS | Data Portability ---
Author Organization [place] [facility], Main Office Address [address] [place] [address] Care Team Providers Care German Professor Name Role Phone RIKY ABEL Primary Care Provider RIKY ABEL Referring Provider Assessment Encounter Date Assessment Date Assessment LastModified by Organization Details LastModified Time 10/31/2022 10/31/2022 56-year-old patient presents today with right shoulder pain. She has been painful for the last 6 months. She denies any injury. 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 She states she has not tried any treatment like physical therapy or anti-inflammatori es. She states she has not injured the shoulder in the past. she sees Dr. Hsieh for her knees, he ordered an MRI for her shoulder and referred her to us. Review of systems per patient questionnaire Imaging: X-ray show no acute bony abnormality, no fracture, preserved joint space. MRI reviewed shows a posterior labral tear. Physical exam: Tender to palpation anterior and posterior shoulder. Range of motion 150/40/upper lumbar. She has 5 in 5 strength with rotator cuff testing, negative belly press. She has some pain with resisted elevation. Negative Neer, positive Calles. Negative Speed, Yergason's. Neurovascular intact. We will first start with a course of physical therapy to help stretch and strengthen at her shoulder. We will also order meloxicam to help with inflammation. We will see her back 4 weeks to see how she has progressed after physical therapy. She is in agreement with this plan. [email or web address] Not available 10/31/2022 10:51:55 11/06/2022 11/06/2022 Patient has arthritis both knees. We discussed knee replacement surgery she would like to avoid it if possible. She wants to try Euflexxa 1st this is the 1st set of shots was given without difficulty. She will continue with exercise and anti-inflammatory medication in the meantime. She has seen Dr. Sharma for her shoulder and no surgery has been recommended so she is going to live with that. [email or web address] Not available 11/06/2022 11:31:26 11/13/2022 11/13/2022 The patient has moderately severe primary osteoarthritis both knees at her request under sterile conditions I injected both knee joints in the office today with Euflexxa injection number 2. I will see her back next week for the 3rd injection both knees she voiced understanding agrees above plan she will call for any further problems difficulties or questions. Not available 11/13/2022 11:27:49 11/20/2022 11/20/2022 By previous x-ra y exam the patient is noted to have moderately severe primary osteoarthritis both knees under sterile conditions at her request I injected both knee joints in the office today with Euflexxa injection number 3. I will see her back in a couple of months if necessary we can do gel shots again in 6 months versus cortisone in between she voiced understanding and agrees above plan she will call for any further problems difficulties or questions. Not available 11/20/2022 11:21:51 01/08/2023 01/08/2023 Patient has advanced primary osteoarthritis of the left knee more [id number] right knee. We talked about treatment options today in detail for her left knee which continues to bother her she would like to proceed with cortisone therefore under sterile conditions I injected his left knee joint in the office with 4 cc 0.5% ropivacaine and 20 mg of Kenalog. Patient tolerated procedure well. I will see her back as needed when she is ready to consider further injections we can do this again in 3 months versus total knee arthroplasty somewhere down the road. She voiced understanding agrees above plan she will call for any further problems difficulties or questions. She would also like a prescription for a knee brace she thinks this would make her knee feel little better we will get this for her today as well. Not available 01/08/2023 10:28:25 Plan of Treatment Reminders Order Date Submit Date Provider Last Modified By Organization Details Last Modified Time Details Appointments None recorded. Lab None recorded. Referral physical therapist referral - Please schedule pt for R shoulder. Thanks 2022 023 [facility] (Outpatient Physical Therapy), [address], [place], [address], 3 11:48:38 Procedures injection/ aspiration joint/burs a (PROC) - in office procedure, administer ed by provider 2022 023 [email or web address] In-Office Order, Internal Use Only DO Not Attach Compendium DO Not Attach Compendium, Do Not Delete/merge, 3 10:01:33 knee aspiration /injection (PROC) 2022 023 [email or web address] In-Office Order, Internal Use Only DO Not Attach Compendium DO Not Attach Compendium, Do Not Delete/merge, 3 10:45:29 knee aspiration /injection (PROC) 2022 023 [email or web address] In-Office Order, Internal Use Only DO Not Attach Compendium DO Not Attach Compendium, Do Not Delete/merge, 3 16:42:07 knee aspiration /injection (PROC) 2022 023 [email or web address] In-Office Order, Internal Use Only DO Not Attach Compendium DO Not Attach Compendium, Do Not Delete/merge, 3 11:04:37 Surgeries None recorded. Imaging None recorded. Medication Orders Kenalog 10 mg/mL suspension for injection [address] [facility] [address] [facility] [place], [address], 3 11:01:11 ropivacain e (PF) 5 mg/mL (0.5 %) injection solution [address] [facility] [place], [address], 3 11:01:11 Euflexxa 10 mg/mL (mw 2.4-3.6 million) intra-paul cular syringe 2022 023 [email or web address] [facility] [address] [place], [address], 3 12:20:50 Euflexxa 10 mg/mL (mw 2.4-3.6 million) intra-paul cular syringe 2022 023 [email or web address] [facility] [place], [address], 3 11:28:25 Euflexxa 10 mg/mL (mw 2.4-3.6 million) intra-paul cular syringe 2022 023 [email or web address] 58 [facility] [place], [address], 3 11:06:37 Mobic 15 mg tablet 2022 023 [email or web address] [facility] [place], [address], 3 12:31:26 Patient TargetsNo targets recorded. Patient InstructionsNo instructions recorded. Reason for Referral Physical Therapist Referral for Pain of right shoulder joint R shoulder Please schedule pt for R shoulder. Thanks Referring Physician: Sofia Snell, Orthopedic Surgery, Encounter Date: 10/31/2022 Results Created Date Observation Date Name Description Value Unit Range Abnormal Flag Note LastModifiedBy Organization Detail LastModifiedTime 10/24/19 23 MRI, shoul fred, w/o contr ast [facility] [address] [place] [address] [phone] Patien t Name: KAUSHIK ESCOBAR Access ion #: [id number] Sex: F : 1965 Locati on: IND Attend ing Physic nelly: Orderi ng Physic nelly: MIKE MONTERO Exam Date: 023 9:21 AM Exam Name: MRI SHOULD ER RT WO Admitt ing Diagno sis(es ): RADIOL OGY REPORT - FINAL EXAM: MRI SHOULD ER RT WO HISTOR Y: pain 56-yea r-old female with right should er pain, no known injury . COMPAR RAUL: Idania kam dated 2022. TECHNI QUE: Multip lanar multis equenc e noncon trast MR images of the right should er were perfor med. FINDIN GS: No fractu re or bone marrow edema are identi fied about the right should er. No eviden ce of full-t hickne ss rotato r cuff tear. 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 The long head of the biceps tendon is intact and locate d in the bicipi indy groove . There is mild glenoh umeral chondr omalac ia inferi marisel. There is mild acromi oclavi cular Page 1 of 2 [facility] Name: KAUSHIK ESCOBAR A Access ion #: [id number] Sex: F : 1965 Exam Date: 9:21 AM Exam Name: MRI SHOULD ER RT WO Admitt ing Diagno sis(es ): hypert rophy. The unders urface of the acromi on is flat. Subacr omial space is narrow ed to 6 mm. There is a trace signif icant glenoh umeral effusi on. IMPRES TRACEY: 1. No fractu re of the right should er. 2. Tear of the multi operation machine operator oinfer ior labrum . 3. No eviden ce of focal or full-t hickne ss rotato r cuff tear. 4. Mild glenoh umeral chondr omalac ia and acromi oclavi cular hypert rophy. Create d and electr onical ly signed by: David babin MD Signed Date: 8:44 PM (CT) Dictat ed by: David babin MD DD: 8:44 PM (CT) DT: 8:44 PM (CT) Page 2 [email or web address] (Imaging) [address], [place], [address], 10/24/2022 08:34:00 10/28/19 23 10/22/2022 MRI, shomari fred, w/o contr ast No observ ation record ed. [email or web address] [facility] [address], [place], [address], 10/27/2022 10:39:19 Result Notes None recorded. Problems Name Problem SNOMED Code Status Onset Date Resolution Date Notes Provider Name and Address Organization Details Recorded Time Knee pain Active Not Available [facility] 3 12:49:53 Osteoarthr itis 365673360 Active Not Available [facility] 3 12:49:53 Osteoarthr itis of left knee joint 0935681236093 09 Active 2021 Not Available [facility] 3 12:49:53 Pain of left knee joint 2097991852227 07 Active 2021 Not Available [facility] 3 12:49:53 Osteoarthr itis of right knee joint 1830387070910 00 Active 2021 Not Available [facility] 3 12:49:53 Pain of right knee joint 4482180392575 00 Active 2021 Not Available [facility] 3 12:49:53 Osteoarthr itis of knee 386206853 Active 2021 Not Available [facility] 3 12:49:52 Pain of bilateral knee joints 5509519338319 04 Active 2021 Not Available [facility] 3 12:49:53 Osteoarthr itis of right glenohumer al joint 0507034023665 101 Active 2022 Not Available [facility] 3 12:49:52 Myofascial pain syndrome of thorax 358163626 Active 2022 Not Available [facility] 3 12:49:52 Pain of right shoulder joint 6655523804129 9100 Active 2022 NAVIN Kwok - S [place] [employer] [facility] 3 09:38:49 Glenoid labrum tear 223367063 Active 2022 Mike Hsieh MD [address], [place] [address], [place], [address] , [facility] [employer] [facility] 3 10:48:21 Knee pain Active 2022 Mora Harmon, ATC L null, [facility] [employer] [facility] 3 10:42:11 Problem Notes None recorded. Procedures Surgical History Date Name Laterality Status Provider Name and Address Organization Details Recorded Time 11/06/2022 Ortho - Visc completed Mike Hsieh MD [address] [facility], [facility] [address], [place], [address], [facility] [employer] [facility] 11/06/2022 11:30:31 Imaging Results None recorded. Procedure Notes None recorded. Medical Equipment None Reported. Medications Name Sig Start Date Stop Date Status Note LastModified by Organization Details LastModified Time prednisone 10 mg tablet TAKE ONE TABLET BY MOUTH THREE TIMES DAILY FOR THREE DAYS, THEN ONE TABLET TWICE DAILY FOR TWO DAYS, THEN ONE TABLET ONCE DAILY FOR ONE DAY active Not Available Not Available No t Available Protonix 40 mg tablet,delaye d release Take 1 tablet every day by oral route. 2021 active Not Available Not Available Not Avai lable meloxicam 15 mg tablet TAKE 1 TABLET BY MOUTH ONCE DAILY active Not Available Not Available No t Available amlodipine 5 mg tablet Take 1 tablet every day by oral route. 2021 active Not Available Not Available Not Avai lable prednisone 10 mg tablets in a dose pack Take 1 tab by mouth, 3 times a day for 3 daysTake 1 tab by mouth 2 times a day for 2 daysTake 1 tab by mouth once a day for 1 day active Not Available Not Available No t Available alprazolam 0.25 mg tablet TAKE 1 TABLET BY MOUTH NIGHTLY NEEDED FOR ANXIETY active Not Available Not Available No t Available Kenalog 10 mg/mL suspension for injection Take 40 mg by injection route. 2022 active ND: 0003- 0494- [phone] Not Available Not Available Not Available diclofenac sodium 75 mg tablet,delaye d release Take 1 tablet twice a day by oral route. active Not Available Not Available No t Available Euflexxa 10 mg/mL (mw 2.4-3.6 million) intra-articul ar syringe Inject 2.5 mL by intra-paul cular route for 35 days. 2022 active Not Available Not Available Not Avai lable ropivacaine (PF) 5 mg/mL (0.5 %) injection solution Take 80 mg by injection route. 2022 active [facility] [phone] -[phone]- [phone] Not Available Not Available Not Available Vitals Date Recorded Body height Body mass index (BMI) Body weight Provider Name and Address Organization Details Last Updated DateTime 10/31/2022 172.72 cm 28.1 kg/m2 72008.59 g Durga Rubin [facility] [employer] [facility] 10/31/2022 09:03:24 Date Recorded Body height Body mass index (BMI) Body weight Provider Name and Address Organization Details Last Updated DateTime 11/06/2022 172.72 cm 28.1 kg/m2 60203.59 angelica Durga Rubin [facility] [employer] [facility] [employer] [facility] 11/06/2022 11:03:23 Date Recorded Body height Body mass index (BMI) Body weight Provider Name and Address Organization Details Last Updated DateTime 11/13/2022 172.72 cm 28.1 kg/m2 17781.59 g Mora Harmon [facility] [employer] [facility] 11/13/2022 10:41:44 Date Recorded Body height Body mass index (BMI) Body weight Provider Name and Address Organization Details Last Updated DateTime 11/20/2022 172.72 cm 28.1 kg/m2 79015.59 g Deya Webber [employer] [facility] [employer] [facility] 11/20/2022 10:43:54 Date Recorded Body height Body mass index (BMI) Body weight Provider Name and Address Organization Details Last Updated DateTime 01/08/2023 172.72 cm 28.6 kg/m2 57999.37 g Mora Harmon [facility] [employer] [facility] 01/08/2023 09:58:28 Social History None recorded. Functional Status None recorded. Mental Status None recorded. Family History Nothing Reported. Medical History No medical history recorded. Gynecological HistoryNo gynecological history recorded. Obstetrics History GPAL:G 0 P 0 0 0 0 Past Encounters Encounter ID Performer Location Encounter Start Date Encounter Closed Date Diagnosis/Indication Diagnosis SNOMED-CT Code Diagnosis ICD10 Code Diagnosis IMO Codes Diagnosis Note [id number] Mike Hsieh MD [facility] [address] [place] [address] 02/27/2022 00:00:00 02/27/2022 14:51:47 [id number] Mike Hsieh MD [facility] [address] [place] [address] 04/10/2022 00:00:00 04/10/2022 09:53:23 [id number] Mike Hsieh MD [facility] [address] [place] [address] 04/24/2022 00:00:00 04/24/2022 11:45:04 [id number] Mike Hsieh MD [facility] [address] [place] [address] 05/01/2022 00:00:00 05/01/2022 10:27:55 [id number] Mike Hsieh MD [facility] [address] [place] [address] 05/08/2022 00:00:00 05/08/2022 10:30:00 [id number] Mike Hsieh MD [facility] [address] [place] [address] 06/19/2022 00:00:00 06/19/2022 09:36:37 [id number] Mike Hsieh MD [facility] [address] [place] [address] 08/26/2022 00:00:00 08/26/2022 16:03:56 [id number] Mike Hsieh MD [facility] [address] [place] [address] 10/27/2022 09:41:38 10/27/2022 11:19:53 Osteoarthritis of knee 890041830 M17.0 Pain of bi lateral knee joints 3630391144 37595 M25.561 M25.562 Myofascial pain syndrome of thorax 350826958 M54.6 Osteoarthr itis of right glenohumeral joint 9643751675 150151 M19.011 Glenoid labrum tear 2022 [id number] S43.431A [id number] Sofia Snell NP [facility] [address] [place] [address] 10/31/2022 09:00:33 10/31/2022 09:26:09 Pain of right shoulder joint 4571590445 1242292 M25.511 [id number] Mike Hsieh MD [facility] [address] [place] [address] 11/06/2022 10:59:56 11/06/2022 12:31:11 Osteoarthritis of knee 087270752 M17.0 Pain of bi lateral knee joints 6972810742 10589 M25.561 M25.562 [id number] Mike Hsieh MD [facility] [address] [place] [address] 11/13/2022 10:29:01 11/13/2022 12:42:06 Osteoarthritis of knee 314177626 M17.0 Knee pain 10538740 M25.5 61 M25.562 [id number] Mike Hsieh MD [facility] [address] [place] [address] 11/20/2022 10:29:57 11/20/2022 12:17:10 Osteoarthritis of knee 238937039 M17.0 Knee pain 00588180 M25.5 61 M25.562 [id number] Mike Hsieh MD [facility] [address] [place] [address] 01/08/2023 09:55:55 01/08/2023 11:26:28 Osteoarthritis of knee 066453423 M17.0 Pain of bi lateral knee joints 1149549569 61154 M25.561 M25.562 Health Concerns Section Related Observation LastModified by Organization Detai ls LastModified Time None Recorded Concern Status LastModified by Organization Details LastModified Time None Recorded Advance Directives Directive None Recorded Payers Insurance Date Sequence Insurance Name Policy Number Policy Lezama Covered Member ID Lezama Member ID Guarantor Name 01/08/2023 1 [facility] [id number] Richard Escobar [id number] Beatrice Escobar Notes Date Note Type Note Provider Name and Address Organization Details Recorded Time 11/06/2022 text/html Patient returns knee pain bilaterally. She has arthritis in both knees. We talked about surgical intervention but she would like to try Euflexxa she is here for the 1st injection. Mike Hsieh MD [address], [place], [address], [employer] 11/06/2022 11:33:25 11/13/2022 text/html Patient returns for Euflexxa injection number 2 both knees. She has advanced primary osteoarthritis both knee joints left worse than right with significant changes in the tibial femoral articulations sclerotic appearance and irregularity of the joint surfaces. She is trying to avoid total knee arthroplasty she comes in today for the 2nd round gel shots, denies any erythema heat effusion or signs of infection really has not gotten much relief from the 1st round yet. GUNNAR Roldan [address], [address], [place], [address], [employer] 11/13/2022 11:28:01 11/20/2022 text/html patient returns for Euflexxa injection number 3 both knees. The patient has moderately severe primary osteoarthritis both knees left worse than right with significant changes in the tibial femoral articulations with sclerotic appearance and irregularity of the joint surfaces. She states she started to get some relief from the 1st 2 rounds of injections denies any erythema heat effusion or signs of infection today. GUNNAR Roldan [address], [place], [address], [employer] 11/20/2022 11:22:02 01/08/2023 text/html Patient returns for recheck of her knees she had gel shot series in both knees 2 months ago. She states the right knee was feeling much better and is okay today. Left knee however only got very short-term relief and is quickly worn off. She does have more advanced osteoarthritis in left knee joint with krnv-xv-tjka changes in medial compartment she has aching pain in her left knee worse with activity somewhat relieved by rest. She states it always feels tight and achy she likes to walk for exercise and she would like to keep doing this however I have advised her that this may not be the best exercise for her knee. We have discussed this previously we have also discussed total knee arthroplasty she is not quite ready mentally for that she comes in today requesting repeat cortisone injection left knee. Denies any erythema heat effusion or signs of infection no new trauma or injury no new symptoms or complaints. GUNNAR Roldan [address] [facility], [facility] [address], [place], [address], [facility] 01/08/2023 10:29:09 OBGyn Episode No OBEpisode recorded.
== END 2025-07-03 15:12 | disposition home or self-care (01) ==
DX: Z79.899 Other long term (current) drug therapy (principal); E05.00 Thyrotoxicosis with diffuse goiter without thyrotoxic crisis or storm; E04.1 Nontoxic single thyroid nodule; I48.91 Unspecified atrial fibrillation
CPT/HCPCS: 36415; 80053; 84439; 84443; 84481; 85025